=== PATIENT | female | born 2000 | race Hispanic/Latino ===

== ENCOUNTER 2018-02-10 16:46 | Emergency (ER) | payer OTHER ==
[2018-02-10 17:33] LABS: Absolute Lymphocytes (CBC) 2.3 K/uL (0.7-4.9); Absolute Monocytes 0.7 K/uL (0.1-1.3); Absolute Neutrophil 6.4 K/uL (1.8-8.0); Basophils % 0.6 % (0-1.3); Hematocrit 39.4 % (36.0-45.0); Lymphocytes % 24.1 % (15.3-44.8); MCH 28.4 pg (27.0-35.0); MCV 84.7 fL (80-100); Monocytes % 7.4 % (3.3-12.3); RBC Red Blood Cell Count 4.65 M/uL (3.86-4.86)
[2018-02-10 17:41] LABS: Protime INR 1.05
[2018-02-10 17:46] LABS: Bicarbonate 24 mEq/L (21-31); Glucose Level 103 mg/dL (65-120); Potassium 3.6 mEq/L (3.6-5.0); Sodium Level 139 mEq/L (135-145)
[2018-02-10 17:52] LABS: ALT/SGPT 16 IU/L (10-60); AST/SGOT 29 IU/L (10-42); Alkaline Phosphatase 66 IU/L (42-121); BUN Blood Urea Nitrogen 14 mg/dL (6-20); Bilirubin Direct 0.1 mg/dL (0-0.2); Bilirubin Total 0.4 mg/dL (0.3-1.2); Creatine Phosphokinase 43 IU/L (22-269); Magnesium 2.1 mg/dL (1.8-2.5); Protein, Total 6.7 g/dL (6.0-8.3)
[2018-02-10 17:56] LABS: CKMB Creatine Kinase MB 0.3 ng/ml (0.3-4.0)
--- NOTE | 2018-02-10 18:00 | EDPHYS ---
Physician Documentation [facility] Name: Chloe Mckeon Age: 17 yrs Sex: Female : 2000 Arrival Date: 02/10/2018 Time: 16:47 Bed 24 Private MD: ED Physician Amarjit Rogers HPI: 02/10 17:37 This 17 yrs old Female presents to ER via Ambulatory with complaints of Chest kav Pain. 17:45 Onset: The symptoms/episode began/occurred acutely. Associated signs and symptoms: kav Pertinent positives: chest pain, Pertinent negatives: congestion, cough, fever, headache, shortness of breath, sore throat, vomiting. Modifying factors: The patient symptoms are alleviated by nothing, the patient symptoms are aggravated by nothing, Occurred at rest. 17:46 The patient or guardian reports chest pain that is located primarily in the left kav breast. The pain does not radiate. Associated signs and symptoms: The patient has no apparent associated signs or symptoms. The chest pain is described as a pressure. Duration: The patient or guardian reports multiple episodes, that have now resolved, approximately 1 episodes since symptom onset, the episodes last approximately 2 second(s). Modifying factors: The symptoms are alleviated by rest, the symptoms are aggravated by nothing. Severity of pain: At its worst the pain was mild just prior to arrival, in the emergency department the pain has improved mildly. The patient has experienced a previous episode, approximately 5 weeks ago, and the symptoms today are exactly the same. patient reports chest pressure left breast area that is intermittent and is non-radiating. 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 - Social history:: Smoking status: Patient/guardian denies using tobacco. - Family history:: not pertinent. - Hospitalizations: : No recent hospitalization is reported. - History obtained from: mother. ROS: 17:48 Constitutional: Negative for fever, chills, and weight loss, Eyes: Negative for injury, kav pain, redness, and discharge, ENT: Negative for injury, pain, and discharge, Neck: Negative for injury, pain, and swelling, Respiratory: Negative for shortness of breath, cough, wheezing, and pleuritic chest pain, Abdomen/GI: Negative for abdominal pain, nausea, vomiting, diarrhea, and constipation, Back: Negative for injury and pain, : Negative for injury, bleeding, discharge, and swelling, MS/Extremity: Negative for injury and deformity, Skin: Negative for injury, rash, and discoloration, Neuro: Negative for headache, weakness, numbness, tingling, and seizure, Psych: Negative for depression, anxiety, suicide ideation, homicidal ideation, and hallucinations, Allergy/Immunology: Negative for hives, rash, and allergies, Endocrine: Negative for neck swelling, polydipsia, polyuria, polyphagia, and marked weight changes, Hematologic/Lymphatic: Negative for swollen nodes, abnormal bleeding, and unusual bruising. 17:48 Cardiovascular: Positive for chest pain, of the chest and left breast. Exam: 17:48 Constitutional: This is a well developed, well nourished patient who is awake, alert, kav and in no acute distress. Head/Face: Normocephalic, atraumatic. Eyes: Pupils equal round and reactive to light, extra-ocular motions intact. Lids and lashes normal. Conjunctiva and sclera are non-icteric and not injected. Cornea within normal limits. Periorbital areas with no swelling, redness, or edema. ENT: Nares patent. No nasal discharge, no septal abnormalities noted. Tympanic membranes are normal and external auditory canals are clear. Oropharynx with no redness, swelling, or masses, exudates, or evidence of obstruction, uvula midline. Mucous membranes moist. Neck: Trachea midline, no thyromegaly or masses palpated, and no cervical lymphadenopathy. Supple, full range of motion without nuchal rigidity, or vertebral point tenderness. No Meningismus. Chest/axilla: Normal chest wall appearance and motion. Nontender with no deformity. No lesions are appreciated. Respiratory: Lungs have equal breath sounds bilaterally, clear to auscultation and percussion. No rales, rhonchi or wheezes noted. No increased work of breathing, no retractions or nasal flaring. Abdomen/GI: Soft, non-tender, with normal bowel sounds. No distension or tympany. No guarding or rebound. No evidence of tenderness throughout. Back: No spinal tenderness. No costovertebral tenderness. Full range of motion. Skin: Warm, dry with normal turgor. Normal color with no rashes, no lesions, and no evidence of cellulitis. MS/ Extremity: Pulses equal, no cyanosis. Neurovascular intact. Full, normal range of motion. Neuro: Awake and alert, GCS 15, oriented to person, place, time, and situation. Cranial nerves II-XII grossly intact. Motor strength 5/5 in all extremities. Sensory grossly intact. Cerebellar exam normal. Normal gait. Psych: Awake, alert, with orientation to person, place and time. Behavior, mood, and affect are within normal limits. 17:48 Cardiovascular: Rate: normal, Rhythm: regular. 17:48 ECG was reviewed by the Attending Physician. nsr Vital Signs: 16:50 BP 131 / 75; Pulse 70; Resp 20; Temp 98.4; Pulse Ox 100% on R/A; Weight 84.37 kg; hb Height 5 ft. 5 in. (165.10 cm); Pain 8/10; 17:15 BP 112 / 63; Pulse 68; Resp 17; Pulse Ox 98% on R/A; kr2 18:00 BP 104 / 62; Pulse 68; Resp 16; Pulse Ox 100% on R/A; kr2 16:50 Body Mass Index 30.95 (84.37 kg, 165.10 cm) hb MDM: 16:56 Patient medically screened. kav 17:48 ECG:. ELENA Risk Score: TOTAL SCORE = 0. Data reviewed: vital signs, nurses notes, lab [facility] test result(s), EKG. 02/10 16:57 Order name: Basic Metabolic Panel; Complete Time: 17:57 kav 02/10 17:51 Interpretation: Within normal limits. kav 02/10 16:57 Order name: BNP; Complete Time: 17:57 kav 02/10 16:57 Order name: CBC with Diff; Complete Time: 17:50 kav 02/10 17:50 Interpretation: Within normal limits. kav 02/10 16:57 Order name: Ckmb; Complete Time: 17:57 kav 02/10 17:58 Interpretation: Within normal limits. v 02/10 16:57 Order name: CPK; Complete Time: 17:57 kav 04/07 17:59 Interpretation: Within normal limits. 02/10 16:57 Order name: LFT's; Complete Time: 17:57 02/10 16:57 Order name: Magnesium; Complete Time: 17:57 02/10 17:58 Interpretation: Within normal limits. 02/10 16:57 Order name: PT-INR; Complete Time: 17:50 02/10 17:50 Interpretation: Within normal limits. 02/10 16:57 Order name: Ptt, Activated; Complete Time: 17:50 02/10 17:50 Interpretation: Within normal limits. 02/10 16:57 Order name: Troponin (emerg Dept Use Only); Complete Time: 17:54 02/10 17:54 Interpretation: Within normal limits. 02/10 16:57 Order name: EKG; Complete Time: 16:58 02/10 16:57 Order name: Cardiac monitoring; Complete Time: 17:24 02/10 16:57 Order name: EKG - Nurse/Tech; Complete Time: 17:53 02/10 16:57 Order name: IV Saline Lock; Complete Time: 17:24 02/10 16:57 Order name: Labs collected and sent; Complete Time: 17:24 02/10 16:57 Order name: O2 Per Protocol; Complete Time: 17:24 02/10 16:57 Order name: O2 Sat Monitoring; Complete Time: 17:24 kav Administered Medications: No medications were administered Disposition: 18:44 Co-signature as Attending Physician, Amarjit Rogers MD. rn Disposition: 02/10/18 17:59 Discharged to Home. Impression: Chest pain, unspecified. - Condition is Stable. - Discharge Instructions: Nonspecific Chest Pain, Chest Wall Pain, [id number]. - Prescriptions for Ibuprofen 800 mg Oral Tablet - take 1 tablet by ORAL route every 8 hours As needed take with food; 30 tablet. - Medication Reconciliation Form, Thank You Letter, Antibiotic Education, Prescription Opioid Use form. - Follow up: Zachariah Henao; When: 2 - 3 days; Reason: Recheck today's complaints, Continuance of care, Re-evaluation by your physician. - Problem is new. - Symptoms have improved. - Notes: please call and set up a follow-up appointement with cardiolgoy in 3-5 days for post-ED evaluation and treatement Signatures: Dispatcher [employer] EDMS Kameron, Stephanie, MIRROR PAINTER MIRROR PAINTER kaAmarjit Redman MD MD rn Baxter, Heather, RN RN Kelsey Gee RN RN kr2 Corrections: (The following items were deleted from the chart) 17:55 17:51 Within normal limits. kav kav 17:57 17:51 OrderId: [id number] PrecursorText: InterpretationText: kav kav 17:58 17:55 Within normal limits. kav kav 17:58 17:55 Within normal limits. kav kav 17:58 17:55 Within normal limits. kav kav 17:58 17:55 OrderId: [id number] PrecursorText: InterpretationText: kav kav 17:59 17:57 Within normal limits. kav kav 17:59 17:55 OrderId: [id number] PrecursorText: InterpretationText: kav kav 17:59 17:55 OrderId: [id number] PrecursorText: InterpretationText: kav kav 17:59 17:59 Within normal limits. kav kav 18:27 16:57 Urine Dipstick-Ancillary ordered. kajosue kr2
--- NOTE | 2018-02-10 18:00 | ER ---
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 Pain does not radiate. Denies previous hx. Transition of care: patient was not received from another setting of care. Onset of symptoms was February 10, 2018. Care prior to arrival: None. 16:49 Method Of Arrival: Ambulatory hb 16:49 Acuity: LEENA 3 hb Triage Assessment: 17:25 General: Appears in no apparent distress. comfortable, well groomed, well developed, kr2 well nourished, Behavior is calm, cooperative, appropriate for age. Pain: Complains of pain in xyphoid area and mid-sternal area Pain does not radiate. Pain currently is 5 out of 10 on a pain scale. Quality of pain is described as pressure, Pain began suddenly, Is episodic, Alleviated by rest, repositioning. Cardiovascular: Heart tones S1 S2 present Capillary refill < 3 seconds in bilateral fingers Patient's skin is warm and dry. Rhythm is sinus rhythm. 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 - Social history:: Smoking status: Patient/guardian denies using tobacco. - Family history:: not pertinent. - Hospitalizations: : No recent hospitalization is reported. - History obtained from: mother. Screenin:25 Abuse screen: Denies threats or abuse. Denies injuries from another. Nutritional kr2 screening: No deficits noted. Tuberculosis screening: No symptoms or risk factors identified. Fall Risk None identified. Assessment: 17:27 General: Appears in no apparent distress. comfortable, well groomed, well developed, kr2 well nourished, Behavior is calm, cooperative, appropriate for age. Pain: Complains of pain in xyphoid area and mid-sternal area Pain does not radiate. Pain currently is 5 out of 10 on a pain scale. Quality of pain is described as pressure, Pain began suddenly, Is episodic, Alleviated by rest, repositioning. Neuro: Level of Consciousness is awake, alert, obeys commands, Oriented to person, place, time, situation, Appropriate for age. Cardiovascular: Heart tones S1 S2 present Capillary refill < 3 seconds in bilateral fingers Patient's skin is warm and dry. Rhythm is sinus rhythm. Respiratory: Airway is patent Respiratory effort is even, unlabored, Respiratory pattern is regular, symmetrical, Breath sounds are clear bilaterally. GI: Abdomen is flat, non-distended. : No signs and/or symptoms were reported regarding the genitourinary system. EENT: Oral mucosa is moist. Derm: Skin is intact, is healthy with good turgor, Skin is pink, warm \T\ dry. Musculoskeletal: Circulation, motion, and sensation intact. 18:20 Reassessment: Patient appears in no apparent distress at this time. Patient and/or kr2 family updated on plan of care and expected duration. Pain level reassessed. Patient is alert, oriented x 3, equal unlabored respirations, skin warm/dry/pink. Patient states feeling better. Patient states symptoms have improved. Vital Signs: 16:50 BP 131 / 75; Pulse 70; Resp 20; Temp 98.4; Pulse Ox 100% on R/A; Weight 84.37 kg; hb Height 5 ft. 5 in. (165.10 cm); Pain 8/10; 17:15 BP 112 / 63; Pulse 68; Resp 17; Pulse Ox 98% on R/A; kr2 18:00 BP 104 / 62; Pulse 68; Resp 16; Pulse Ox 100% on R/A; kr2 16:50 Body Mass Index 30.95 (84.37 kg, 165.10 cm) hb ED Course: 16:47 Patient arrived in ED. as 16:50 Triage completed. hb 16:50 Arm band placed on left wrist. hb 16:56 Stephanie Melo FNP is PSYCHIATRICP. kav 16:56 Amarjit Rogers MD is Attending Physician. kav 17:05 Kelsey Fritz RN is Primary Nurse. kr2 17:20 Inserted saline lock: 20 gauge in right antecubital area, using aseptic technique. kr2 Blood collected. Patient maintains SpO2 saturation greater than 95% on room air. 17:26 Patient has correct armband on for positive identification. Placed in gown. Bed in low kr2 position. Call light in reach. Side rails up X2. Adult w/ patient. desk monitor on. Pulse ox on. NIBP on. Door closed. Warm blanket given. Head of bed elevated. 17:59 Zachariah Henao MD is Referral Physician. kav 18:29 No provider procedures requiring assistance completed. IV discontinued, intact, kr2 bleeding controlled, No redness/swelling at site. Pressure dressing applied. Administered Medications: No medications were administered Outcome: 17:59 Discharge ordered by . kav 18:29 Discharged to home ambulatory, with family. kr2 18:29 Condition: improved 18:29 Discharge instructions given to patient, Instructed on discharge instructions, follow up and referral plans. medication usage, Demonstrated understanding of instructions, follow-up care, medications, Prescriptions given X 1. 18:30 Patient left the ED. kr2 Signatures: Stephanie Melo, MENDING CARRIER MENDING CARRIER Annette Ojeda as Miryam Lubin, RN Kelsey Diggs RN RN kr2
--- NOTE | 2018-02-11 10:22 | EKG ---
Test Date: 2018-02-10 Test Time: 17:28:37 Manager [facility]: [facility] MEASUREMENT RESULTS: Intervals: Rate: 73 [place]: 148 QRSD: 84 QT: 398 QTc: 438 [place]: P: 36 [place]: 148 QRS: 53 T: 18 INTERPRETIVE STATEMENTS: Normal sinus rhythm Anterior T inversion Abnormal ECG Compared to ECG 07/29/2017 11:50:09 no significant change from previous ECG Electronically Signed On 02-11-18 10:22:00 CDT by Juan Ramon Buchanan
== END 2018-02-10 18:30 | disposition home or self-care (01) ==
LOC: ER 16:46
DX: R07.9 Chest pain, unspecified (principal)
CPT/HCPCS: 36415; 80048; 80076; 82550; 82553; 83735; 83880; 84484; 85025; 85610; 85730; 93005; 99285

== ENCOUNTER 2019-03-08 17:32 | Observation (INO) | payer OTHER ==
[2019-03-08] MEDS: FENTANYL CITR 100 MCG/2 ML ONE ×2 (10:32→22:25)
--- OUTSIDE RECORDS SUMMARY | 2019-03-08 17:34 | XMS REPORT ---
:2000 [facility] [address] [place] [id number] Care Team Providers Name Role Phone Unavailable Unavailable Unavailable Problems This patient has no known problems. Allergies, Adverse Reactions, Alerts This patient has no known allergies or adverse reactions. Medications This patient has no known medications.
[2019-03-08 18:09] LABS: Absolute Lymphocytes (CBC) 1.5 K/uL (0.7-4.9); Absolute Monocytes 1.2 K/uL (0.1-1.3); Absolute Neutrophil 7.8 K/uL (1.8-8.0); Basophils % 0.4 % (0-1.3); Eosinophils % 0.1 % (0-4.4); Hematocrit 41.4 % (36.0-45.0); Lymphocytes % 14.3 % (15.3-44.8); MPV 8.8 fL (7.6-11.3); Monocytes % 11.2 % (3.3-12.3); RBC Red Blood Cell Count 4.66 M/uL (3.86-4.86)
[2019-03-08 18:26] LABS: ALT/SGPT 22 U/L (12-78); AST/SGOT 16 U/L (15-37); Albumin 4.2 g/dL (3.4-5.0); Alkaline Phosphatase 83 U/L (45-117); BUN Blood Urea Nitrogen 9 mg/dL (7-18); Bicarbonate 26 mmol/L (21-32); Bilirubin Direct 0.1 mg/dL (0-0.2); Bilirubin Total 0.4 mg/dL (0.2-1.0); Glucose Level 99 mg/dL (74-106); Lipase 87 U/L (73-393); Potassium 3.4 mmol/L (3.5-5.1); Protein, Total 7.6 g/dL (6.4-8.2); Sodium Level 140 mmol/L (136-145)
[2019-03-08 18:29] LABS: Urine Blood TRACE (NEG); Urine Glucose NEGATIVE (NEG); Urine Protein NEGATIVE (NEG)
[2019-03-08] MEDS ORDERED: NA CHLORIDE 0.9% 1,000 ML ONE (18:35)
[2019-03-08] MEDS ORDERED: MORPHINE 2 MG/ML SYR ONE (18:35)
[2019-03-08] MEDS ORDERED: ONDANSETRON 4 MG/2 ML VIAL ONE ×3 (18:35→21:49)
--- NOTE | 2019-03-08 19:24 | RAD REPORT ---
EXAM DESCRIPTION: CTAbdomen Pelvis W Contrast - 03/08/2019 7:10 pm CLINICAL HISTORY: Abdominal pain. right lower abdominal pain, IV ONLY COMPARISON: CT ABD PELVIS W CONTRAST dated 05/16/2013 TECHNIQUE: Biphasic CT imaging of the abdomen and pelvis was performed with 100 ml non-ionic IV cont rast. All CT scans are performed using dose optimization technique as appropriate and may include automated exposure control or mA/KV adjustment according to patient size. FINDINGS: The lung bases are clear.Postsurgical changes are present about the stomach. The liver, spleen, pancreas, adrenal glands and kidneys are within normal limits. No bowel obstruction, free air, free fluid or abscess. The appendix is thickened up to 9 mm with tra ce periappendiceal fat stranding, suspicious for early acute appendicitis. No evidence of significan t lymphadenopathy. No suspicious bony findings. IMPRESSION: Findings are suspicious for early acute appendicitis.
--- NOTE | 2019-03-08 19:42 | EDPHYS ---
Physician Documentation [facility] Name: Chloe Mckeon Age: 18 yrs Sex: Female : 2000 Arrival Date: 03/08/2019 Time: 17:35 Bed 17 Private MD: ED Physician Amarjit Rogers HPI: 03/08 17:51 This 18 yrs old Female presents to ER via Ambulatory with complaints of jmm Abdominal Pain, Cough. 17:51 The patient presents with abdominal pain in the lower abdomen. Onset: The jmm symptoms/episode began/occurred today. The symptoms do not radiate. Associated signs and symptoms: Pertinent negatives: diarrhea, fever, vomiting. This is a 18 year old female that presents to the ED with complaints of lower abdominal pain beginning earlier today. Pain is localized to the right lower quadrant. Denies fever. . 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 - Social history:: Smoking status: Patient/guardian denies using tobacco. - Ebola Screening: : No symptoms or risks identified at this time. ROS: 17:51 Constitutional: Negative for fever, chills, and weight loss, Cardiovascular: Negative jmm for chest pain, palpitations, and edema. 17:51 Respiratory: Positive for cough. 17:51 Abdomen/GI: Positive for abdominal pain. 17:51 All other systems are negative. Exam: 17:51 Constitutional: This is a well developed, well nourished patient who is awake, alert, jmm and in no acute distress. Head/Face: atraumatic. Eyes: EOMI, no conjunctival erythema appreciated ENT: Moist Mucus Membranes Neck: Trachea midline, Supple Chest/axilla: Normal chest wall appearance and motion. Cardiovascular: Regular rate and rhythm. No edema appreciated Respiratory: Normal respirations, no respiratory distress appreciated 17:51 Abdomen/GI: Inspection: abdomen appears normal, Palpation: soft, moderate abdominal tenderness, in the right lower quadrant. 17:51 Back: ROM is normal. 17:51 Musculoskeletal/extremity: ROM: intact in all extremities. 17:51 Skin: Appearance: Color: normal in color. 17:51 Neuro: Orientation: is normal, Mentation: is normal, Memory: is normal. 17:51 Psych: Behavior/mood is pleasant, cooperative. Vital Signs: 17:42 BP 119 / 75; Pulse 96; Resp 16; Temp 99(TE); Pulse Ox 100% on R/A; Weight 74.84 kg; hb Height 5 ft. 6 in. (167.64 cm); Pain 6/10; 18:22 BP 114 / 71; Pulse 89; Resp 18; Pulse Ox 100% on R/A; Pain 6/10; em 19:20 BP 122 / 85; Pulse 87; Resp 20 S; Temp 98.1(O); Pulse Ox 100% on R/A; cc3 20:12 BP 118 / 96; Pulse 85; Resp 18 S; Pulse Ox 100% on R/A; cc3 17:42 Body Mass Index 26.63 (74.84 kg, 167.64 cm) hb MDM: 17:51 Patient medically screened. [facility] 19:37 Data reviewed: vital signs, nurses notes. Counseling: I had a detailed discussion with [facility] the patient and/or guardian regarding: the historical points, exam findings, and any diagnostic results supporting the discharge/admit diagnosis, radiology results, the need for outpatient follow up, to return to the emergency department if symptoms worsen or persist or if there are any questions or concerns that arise at home. ED course: I discussed the patient with Dr. Tavares whom accepted admission. . 03/08 17:52 Order name: Basic Metabolic Panel; Complete Time: 18:27 [facility] 03/08 17:52 Order name: CBC with Diff; Complete Time: 18:14 [facility] 03/08 17:52 Order name: Creatinine for Radiology; Complete Time: 18:25 [facility] 03/08 17:52 Order name: Hepatic Function; Complete Time: 18:27 [facility] 03/08 17:52 Order name: Lipase; Complete Time: 18:27 [facility] 03/08 18:04 Order name: Urine Dipstick--Ancillary (enter results); Complete Time: 18:35 03/08 18:04 Order name: Urine --Ancillary (enter results); Complete Time: 18:35 eb 03/08 20:06 Order name: Basic Metabolic Panel [facility] 03/08 20:06 Order name: Basic Metabolic Panel [facility] 03/08 20:06 Order name: CBC with Automated Diff [facility] 03/08 20:06 Order name: CBC with Automated Diff [facility] 03/08 20:06 Order name: Lipase [facility] 03/08 20:06 Order name: Lipase [facility] 03/08 20:06 Order name: Liver (Hepatic) Function [facility] 03/08 17:52 Order name: IV Saline Lock; Complete Time: 18:05 [facility] 03/08 17:52 Order name: Labs collected and sent; Complete Time: 18:05 [facility] 03/08 17:53 Order name: Urine Dipstick-Ancillary (obtain specimen); Complete Time: 18:05 [facility] 03/08 17:53 Order name: CT Abd/Pelvis - W/Contrast; Complete Time: 19:31 [facility] 03/08 20:06 Order name: NPO [facility] 03/08 20:06 Order name: Liver (Hepatic) Function EDMS Administered Medications: 18:30 Drug: Zofran 4 mg Route: IVP; Site: right antecubital; hb 19:15 Follow up: Response: No adverse reaction; Nausea is decreased cc3 18:31 Drug: NS 0.9% 1000 ml Route: IV; Rate: 1 bolus; Site: right antecubital; em 19:15 Follow up: Response: No adverse reaction; IV Status: Completed infusion; IV Intake: cc3 1000ml 18:34 Drug: morphine 2 mg Route: IVP; Site: right antecubital; hb 19:15 Follow up: Response: No adverse reaction; Pain is decreased cc3 19:50 Drug: morphine 4 mg Route: IVP; Site: right antecubital; cc3 20:15 Follow up: Response: No adverse reaction; Pain is decreased cc3 19:55 Drug: Zofran 4 mg Route: IVP; Site: right antecubital; cc3 20:15 Follow up: Response: No adverse reaction; Nausea is decreased cc3 20:00 Drug: Flagyl 500 mg Volume: 100 ml; Route: IVPB; Rate: 200 ml/hr; Infused Over: 30 cc3 mins; Site: right antecubital; 20:26 Follow up: Response: No adverse reaction; IV Status: Infusion continued upon admission; cc3 IV Intake: 80ml 20:26 Drug: Cipro 400 mg {Note: To be started in OR right after the ongoing IV Flagyl as per cc3 ARMATURE CONNECTORFARHAT Alexandre.} Volume: 200 ml; Route: IVPB; Infused Over: 60 mins; Site: right antecubital; 20:26 Follow up: To be started in OR after the ongoing IV Flagyl cc3 Disposition: 03/08/19 19:41 Hospitalization ordered by Russ Tavares for Inpatient Admission. Preliminary diagnosis is Acute appendicitis. - Bed requested for Telemetry/MedSurg (Inpatient). - Status is Inpatient Admission. cc3 - Condition is Stable. - Problem is new. - Symptoms are unchanged. UTI on Admission? No Addendum: 03/09/2019 22:45 Co-signature as Attending Physician, Amarjit Rogers MD. r n Signatures: Dispatcher [employer] EDMS Chacorta Meeks PA PA jmm Munoz, Edgar, PSYCHOPAEDIC NURSE PSYCHOPAEDIC NURSE em Amarjit Rogers MD MD rn Garcia, Cindy, RN RN cg Baxter, Heather, RN RN Akanksha Enamorado cc3 Corrections: (The following items were deleted from the chart) 03/08 20:13 19:41 Hospitalization Ordered by Russ Tavares MD for Inpatient Admission. Preliminary cg diagnosis is Acute appendicitis. Bed requested for Telemetry/MedSurg (Inpatient). Status is Inpatient Admission. Condition is Stable. Problem is new. Symptoms are unchanged. UTI on Admission? No. [facility] 20:31 20:13 03/08/2019 19:41 Hospitalization Ordered by Russ Tavares MD for Inpatient cc3 Admission. Preliminary diagnosis is Acute appendicitis. Bed requested for Telemetry/MedSurg (Inpatient). Status is Inpatient Admission. Condition is Stable. Problem is new. Symptoms are unchanged. UTI on Admission? No. cg
--- NOTE | 2019-03-08 19:42 | ER ---
Nurse's Notes [facility] Name: Chloe Mckeon Age: 18 yrs Sex: Female : 2000 Arrival Date: 03/08/2019 Time: 17:35 Bed 17 Private MD: Diagnosis: Acute appendicitis Presentation: 03/08 17:41 Presenting complaint: Right sided abdominal pain and nausea since this morning, hb nonproductive cough x 5 days. Denies V/D/fever. Transition of care: patient was not received from another setting of care. Onset of symptoms was March 08, 2019. Risk Assessment: Do you want to hurt yourself or someone else? Patient reports no desire to harm self or others. Care prior to arrival: None. 17:41 Method Of Arrival: Ambulatory hb 17:41 Acuity: LEENA 3 hb 19:15 Initial Sepsis Screen: Does the patient meet any 2 criteria? No. Patient's initial cc3 sepsis screen is negative. Does the patient have a suspected source of infection? No. Patient's initial sepsis screen is negative. 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 - Social history:: Smoking status: Patient/guardian denies using tobacco. - Ebola Screening: : No symptoms or risks identified at this time. Screenin:00 Abuse screen: Denies threats or abuse. Nutritional screening: No deficits noted. em Tuberculosis screening: No symptoms or risk factors identified. Fall Risk None identified. Assessment: 18:00 General: Appears in no apparent distress. comfortable, Behavior is calm, cooperative, em Denies fever. Pain: Complains of pain in right lower quadrant Pain currently is 6 out of 10 on a pain scale. Pain began this morning. Neuro: Level of Consciousness is awake, alert, obeys commands, Oriented to person, place, time, situation. Cardiovascular: Capillary refill < 3 seconds Patient's skin is warm and dry. Respiratory: Airway is patent Respiratory effort is even, unlabored, Respiratory pattern is regular, symmetrical, Breath sounds are clear bilaterally. GI: Abdomen is flat, Bowel sounds present X 4 quads. Abd is soft X 4 quads Abdomen is tender to palpation in right lower quadrant Reports nausea, Patient currently denies diarrhea, vomiting. : Urine is clear. EENT: Reports nasal congestion. Derm: Skin is intact, is healthy with good turgor, Skin is pink, warm \T\ dry. Musculoskeletal: Capillary refill < 3 seconds, Range of motion: intact in all extremities. 19:20 Reassessment: Patient appears in no apparent distress at this time. Patient and/or cc3 family updated on plan of care and expected duration. Pain level reassessed. Patient is alert, oriented x 3, equal unlabored respirations, skin warm/dry/pink. Received this female patient from morning shift [facility] as a case of abdominal pain. Patient came back from CT scan department, awaiting result. 20:12 Reassessment: Patient appears in no apparent distress at this time. Patient and/or cc3 family updated on plan of care and expected duration. Pain level reassessed. Patient is alert, oriented x 3, equal unlabored respirations, skin warm/dry/pink. 20:27 Reassessment: Patient appears in no apparent distress at this time. Patient and/or cc3 family updated on plan of care and expected duration. Pain level reassessed. Patient is alert/active/playful, equal unlabored respirations, skin warm/dry/pink. DOUBLE NEEDLE STITCHERFARHAT Alexandre came and handed over the patient to her for continuity of care and management. Was about to start the IV Ciprofloxacin before they leave for OR but FARHAT Alexandre said she'll just start it in OR after the ongoing IV Flagyl. Patient left ER vitally stable by wheelchair escorted by FARHAT Alexandre and the patient's parents. Vital Signs: 17:42 BP 119 / 75; Pulse 96; Resp 16; Temp 99(TE); Pulse Ox 100% on R/A; Weight 74.84 kg; hb Height 5 ft. 6 in. (167.64 cm); Pain 6/10; 18:22 BP 114 / 71; Pulse 89; Resp 18; Pulse Ox 100% on R/A; Pain 6/10; em 19:20 BP 122 / 85; Pulse 87; Resp 20 S; Temp 98.1(O); Pulse Ox 100% on R/A; cc3 20:12 BP 118 / 96; Pulse 85; Resp 18 S; Pulse Ox 100% on R/A; cc3 17:42 Body Mass Index 26.63 (74.84 kg, 167.64 cm) hb ED Course: 17:35 Patient arrived in ED. as 17:42 Triage completed. hb 17:43 Arm band placed on right wrist. hb 17:45 Chacorta Meeks PA is PHCP. jmm 17:45 Amarjit Rogers MD is Attending Physician. jmm 17:53 Constantin Tristan LVN is Primary Nurse. em 17:55 Radiology exam delayed due to lab results not completed at this time. test vm2 not completed at this time. 18:00 Patient has correct armband on for positive identification. Placed in gown. Bed in low em position. Call light in reach. Side rails up X2. Adult w/ patient. Pulse ox on. NIBP on. 18:10 Initial lab(s) drawn, by me, sent to lab. Inserted saline lock: 20 gauge in right em antecubital area, using aseptic technique. Blood collected. 19:11 CT Abd/Pelvis - W/Contrast In Process Unspecified. EDMS 19:38 Russ Tavares MD is Hospitalizing Provider. m 20:26 No provider procedures requiring assistance completed. Patient admitted, IV remains in cc3 place. Administered Medications: 18:30 Drug: Zofran 4 mg Route: IVP; Site: right antecubital; hb 19:15 Follow up: Response: No adverse reaction; Nausea is decreased cc3 18:31 Drug: NS 0.9% 1000 ml Route: IV; Rate: 1 bolus; Site: right antecubital; em 19:15 Follow up: Response: No adverse reaction; IV Status: Completed infusion; IV Intake: cc3 1000ml 18:34 Drug: morphine 2 mg Route: IVP; Site: right antecubital; hb 19:15 Follow up: Response: No adverse reaction; Pain is decreased cc3 19:50 Drug: morphine 4 mg Route: IVP; Site: right antecubital; cc3 20:15 Follow up: Response: No adverse reaction; Pain is decreased cc3 19:55 Drug: Zofran 4 mg Route: IVP; Site: right antecubital; cc3 20:15 Follow up: Response: No adverse reaction; Nausea is decreased cc3 20:00 Drug: Flagyl 500 mg Volume: 100 ml; Route: IVPB; Rate: 200 ml/hr; Infused Over: 30 cc3 mins; Site: right antecubital; 20:26 Follow up: Response: No adverse reaction; IV Status: Infusion continued upon admission; cc3 IV Intake: 80ml 20:26 Drug: Cipro 400 mg {Note: To be started in OR right after the ongoing IV Flagyl as per cc3 DOUBLE NEEDLE STITCHERFARHAT Alexandre.} Volume: 200 ml; Route: IVPB; Infused Over: 60 mins; Site: right antecubital; 20:26 Follow up: To be started in OR after the ongoing IV Flagyl cc3 Intake: 19:15 IV: 1000ml; Total: 1000ml. cc3 20:26 IV: 80ml; Total: 1080ml. cc3 Outcome: 19:41 Decision to Hospitalize by Provider. [facility] 20:26 Admitted to OR accompanied by nurse, family with patient, via wheelchair, room OR then cc3 218, with chart, Report called to handed over to DOUBLE NEEDLE STITCHERFARHAT Alexandre 20:26 Condition: stable 20:26 Instructed on the need for admit, Demonstrated understanding of instructions. 20:31 Patient left the ED. cc3 Signatures: Dispatcher [employer] Chacorta Espinoza PA PA Constantin Reynolds, TESTER SOUND TESTER SOUND Annette Huffman Heather, FARHAT RN Aster Alberto [facility] Akanksha Enamorado cc3 Corrections: (The following items were deleted from the chart) 19:33 19:20 BP 122 / 85; Pulse 87bpm; Resp 20bpm; Spontaneous; Pulse Ox 100% RA; cc3 cc3
[2019-03-08] MEDS ORDERED: MORPHINE 4 MG/ML SYR ONE (20:02)
[2019-03-08] MEDS ORDERED: METRONIDAZOLE 500mg IVPB 500 MG/100 ML BAG IV ONE (20:03)
[2019-03-08] MEDS ORDERED: CIPROFLOXACIN 400mg IV 400 MG/200 ML BAG IV ONE (20:03)
[2019-03-08] MEDS ORDERED: ACETAMINOPHEN 500 MG TAB PO PRN (20:04)
--- OUTSIDE RECORDS SUMMARY | 2019-03-08 20:38 | XMS REPORT ---
:2000 [facility] [address] [place] [address] [place] [id number] Care Team Providers Name Role Phone Unavailable Unavailable Unavailable Problems This patient has no known problems. Allergies, Adverse Reactions, Alerts This patient has no known allergies or adverse reactions. Medications This patient has no known medications.
[2019-03-08] MEDS ORDERED: Ringers Lactate 1,000 ML IV ONE (20:48)
[2019-03-08] MEDS: ONDANSETRON HCL 40 MG/20 ML VIAL IV SCH (21:00)
[2019-03-08] MEDS: CIPROFLOXACIN 400mg IV 400 MG/200 ML BAG IV SCH (21:00)
[2019-03-08] MEDS ORDERED: PROPOFOL 200 MG/20 ML VIAL IV ONE (21:02)
[2019-03-08] MEDS ORDERED: ROCURONIUM 50 MG/5 ML VIAL IV ONE (21:03)
[2019-03-08] MEDS ORDERED: FENTANYL CITR 100 MCG/2 ML ONE ×2 (21:03→22:49)
[2019-03-08] MEDS ORDERED: LIDOCAINE 2% MPF 5 ML VIAL ONE (21:03)
[2019-03-08] MEDS ORDERED: BSS OPTHALMIC SOL 15 ML BOT OPTH ONE (21:06)
[2019-03-08] MEDS: BUPIVACAINE 0.5% PF 10 ML VIAL ONE ×2 (21:11→21:54)
[2019-03-08] MEDS ORDERED: KETOROLAC 30 MG/ML INJ ONE (21:49)
[2019-03-08] MEDS ORDERED: DEXAMETHASONE 10 MG/ML VIAL ONE (21:49)
[2019-03-08] MEDS ORDERED: GLYCOPYRROLATE 0.2 MG/ML SYR ONE (22:12)
[2019-03-08] MEDS ORDERED: NEOSTIGMINE 1 MG/ML -10 ML VIAL ONE ×2 (22:13→22:15)
[2019-03-09] MEDS: MORPHINE 4 MG/ML SYR IV PRN ×2 (01:21→05:51)
[2019-03-09] MEDS: ONDANSETRON HCL 40 MG/20 ML VIAL IV SCH ×2 (01:21→05:49)
[2019-03-09] MEDS: ONDANSETRON 4 MG/2 ML VIAL ONE ×2 (01:21→01:31)
[2019-03-09] MEDS: METRONIDAZOLE 500mg IVPB 500 MG/100 ML BAG IV SCH ×2 (01:22→08:08)
[2019-03-09] MEDS: D5 0.45 NS 1,000 ML IV SCH ×3 (01:22→12:21)
[2019-03-09 05:22] LABS: Absolute Lymphocytes (CBC) 0.7 K/uL (0.7-4.9); Absolute Monocytes 0.3 K/uL (0.1-1.3); Absolute Neutrophil 5.3 K/uL (1.8-8.0); Basophils % 0.3 % (0-1.3); Hematocrit 38.3 % (36.0-45.0); Lymphocytes % 10.5 % (15.3-44.8); MPV 9.3 fL (7.6-11.3); Monocytes % 4.2 % (3.3-12.3); RBC Red Blood Cell Count 4.25 M/uL (3.86-4.86)
--- NOTE | 2019-03-09 05:35 | PREOPHP ---
Date of Admission: 03/08/2019 Diagnoses: Acute appendicitis. History Of Present Illness: This is the case of a 18-year-old patient who comes to us complaining of right lower quadrant tenderness associated with nausea, vomiting. This happened for a day of durati on. She denies any dysuria, hematuria, hematochezia, or melena. Denies any recent travel out of the country. Denies any family member sick at home. Past Medical History: Includes history of morbid obesity, the patient had a gastric sleeve in 2017, chronic headache. Allergies: NONE. Medication: Amitriptyline and Vyvanse. Past Surgical History: Surgeries also include tonsillectomy, gastric sleeve. Social History: She does not smoke. She does not drink alcohol. Family History: Noncontributory. Review of Systems: Ten points otherwise unremarkable. Physical Examination: General: The patient is awake and alert. HEENT: Pupils are equal and reactive, anicteric. Neck: Supple. Chest: Clear. Heart: S1, S2. Abdomen: Right lower quadrant tenderness with Rovsing sign positive. Breasts, Pelvic, Rectal: Deferred. Extremities: Good capillary refill. Cranial nerves 2 through 12, grossly within normal limits. Laboratory Data: Blood work shows WBC count of 10.5 with platelets of 220, neutrophils 74.0, potassi um 3.4. UA: Nitrite negative. Laboratory Data: CAT scan of abdomen and pelvis shows acute appendicitis by Dr. Leija. Assessment: She is a 18-year-old patient with acute appendicitis. Laparoscopic, possible open appen dectomy was fully explained to the patient with benefits, alternatives, and risks, including, but not limited to infection, bleeding, damage to adjacent structures, anesthesia complication, negative prakash endix, myocardial infarction, even . She also understands this may not relieve the symptoms and she might need more than one surgical intervention. The OR was called stat. VIRIDIANA/GODFREY Voice ID: [id number]
[2019-03-09 05:36] LABS: ALT/SGPT 20 U/L (12-78); AST/SGOT 11 U/L (15-37); Albumin 3.5 g/dL (3.4-5.0); Alkaline Phosphatase 74 U/L (45-117); BUN Blood Urea Nitrogen 7 mg/dL (7-18); Bicarbonate 26 mmol/L (21-32); Bilirubin Direct 0.1 mg/dL (0-0.2); Bilirubin Total 0.3 mg/dL (0.2-1.0); Glucose Level 159 mg/dL (74-106); Lipase 55 U/L (73-393); Potassium 4.2 mmol/L (3.5-5.1); Protein, Total 6.7 g/dL (6.4-8.2); Sodium Level 141 mmol/L (136-145)
[2019-03-09] MEDS ORDERED: ONDANSETRON 4 MG/2 ML VIAL ONE (05:54)
--- NOTE | 2019-03-09 07:15 | OP ---
Date of Procedure: 03/08/2019 Surgeon: Russ Tavares MD Preoperative Diagnosis: Acute appendicitis. Postoperative Diagnosis: Acute appendicitis. Procedure: Laparoscopic appendectomy. Anesthesia: General plus local. Indications: This is a case of a 18-year-old patient comes to us with above diagnosis. Fully explai capri the benefits, alternatives, and risks of laparoscopic, possible open appendectomy, which include but are not limited to infection, bleeding, damage to adjacent structures, anesthesia complication, M I, and even . She also understands this may not relieve any symptoms. She might need more than one surgical intervention. She understood, signed a consent. Description Of Procedure: The patient was brought to the operating room, placed in supine position. Anesthesia was done without complication. Abdominal area was prepped and draped in a sterile fashio n. Marcaine 0.5% was injected for local anesthetic, followed by sharp incision of the skin in the in fraumbilical region. Incision was carried down to fascia, which was opened under direct vision. Per itoneum was encountered, opened under direct vision. Vicryl #1 placed inside the fascia. Rj tro car was carefully introduced. No bleeding was obtained. I placed 2 more trocars, 5 mm each one of t hem, in the suprapubic and left lower quadrant under direct visualization. This allowed me to visual ize the area of the right lower quadrant. We noticed an inflamed appendix. The base of the appendix seems to be spared from the disease so we created a window in the base of the appendix and transecte d that with an Endo TEDDY 45 mm 3.5, and the mesoappendix with an Endo TEDDY 45 mm 2.5. Further hemostas is was obtained with the help of a 5 mm clips. Appendix removed from abdominal cavity using an EndoC atch through the umbilical incision. The area was inspected once again. No bile leak. No bleeding. This is after irrigation and suction. At that moment, I proceeded to remove the trocars under dire ct vision. Deflated the pneumoperitoneum. Closed the fascia with #1 Vicryl. Irrigated subcutaneous tissue, closed that with 3-0 chromic and skin in a subcuticular fashion with 3-0 chromic and Steri-S trips on top. Sponge count and instrument counts were correct. The patient tolerated the procedure well. The patient was sent to recovery in stable condition. HM/MODL Voice ID: [id number] Report ID: [id number]
[2019-03-09] MEDS: HYDROCODONE/APAP 5/325 MG TAB PO PRN ×2 (08:08→12:44)
[2019-03-09] MEDS: CIPROFLOXACIN 400mg IV 400 MG/200 ML BAG IV SCH (08:09)
[2019-03-09] MEDS: ONDANSETRON 4 MG/2 ML VIAL IV SCH ×2 (09:00→12:19)
--- NOTE | 2019-03-09 10:55 | P.DS ---
Admission Date: 03/08/19 Discharge Date: 03/09/19 Disposition: ROUTINE DISCHARGE Discharge Condition: GOOD Vital Signs/Physical Exam: Temp Pulse Resp BP Pulse Ox 97 F 59 18 93/53 L 98 03/09/19 08:00 03/09/19 08:00 03/09/19 08:00 03/09/19 08:00 03/09/19 08:00 General: Alert, In no apparent distress, Oriented x3, Cooperative HEENT: PERRLA, EOMI Neck: Supple Respiratory: Normal air movement Cardiovascular: No edema, Normal pulses Gastrointestinal: Soft and benign Musculoskeletal: No erythema, No tenderness, No warmth Integumentary: No rashes, No breakdown Neurological: Normal speech Laboratory Data at Discharge: WBC 6.2 K/uL (4.3-10.9) D 03/09/19 04:43 Hgb 12.7 g/dL (12.0-15.0) 03/09/19 04:43 Hct 38.3 % (36.0-45.0) 03/09/19 04:43 Plt Count 201 K/uL (152-406) 03/09/19 04:43 Sodium 141 mmol/L (136-145) 03/09/19 04:43 Potassium 4.2 mmol/L (3.5-5.1) 03/09/19 04:43 BUN 7 mg/dL (7-18) 03/09/19 04:43 Creatinine 0.70 mg/dL (0.55-1.3) 03/09/19 04:43 Glucose 159 mg/dL (74-106) H 03/09/19 04:43 Total Bilirubin 0.3 mg/dL (0.2-1.0) 03/09/19 04:43 AST 11 U/L (15-37) L 03/09/19 04:43 ALT 20 U/L (12-78) 03/09/19 04:43 Alkaline Phosphatase 74 U/L (45-117) 03/09/19 04:43 Lipase 55 U/L (73-393) L 03/09/19 04:43 Home Medications: Acetam/Caff/Butal [Fioricet*] 1 tab PO PRN PRN 03/08/19 Amitriptyline [Elavil*] 25 mg PO BEDTIME 03/08/19 Dextroamphetamine/Amphetamine [Adderall 20 mg Tablet] 20 mg PO DAILY 03/08/19 Lisdexamfetamine Dimesylate [Vyvanse] 50 mg PO DAILY 03/08/19 Amoxicillin/Potassium Clav [Augmentin 875-125 Tablet] 1 each PO BID #12 tablet 03/09/19 Codeine/APAP [Tylenol W/Codeine #3 tab] 1 tab PO Q4HP PRN #30 tab 03/09/19 New Medications: Amoxicillin/Potassium Clav [Augmentin 875-125 Tablet] 1 each PO BID #12 tablet Codeine/APAP [Tylenol W/Codeine #3 tab] 1 tab PO Q4HP PRN #30 tab PRN Reason: Pain Patient Discharge Instructions: KEep area dry for 24h then may shower. Keep sterile strips intact. Diet: AHA Activity: No lifting more than 10 lbs Followup: Russ Tavares MD [ACTIVE - CAN ADMIT] - 1 Week
== END 2019-03-09 13:55 | disposition home or self-care (01) ==
LOC: ER 17:32 → OR 20:36 → INTOOBSV 21:00 → ERHOLD 21:00 → 2ND 21:01
PROVIDERS: ADMIT Surgery; ATTEND Surgery
PROC: 0DTJ4ZZ Resection of Appendix, Percutaneous Endoscopic Approach (ICD-10-PCS; principal; 2019-03-08 20:00)
DX: K35.80 Unspecified acute appendicitis (principal)
CPT/HCPCS: 36415; 74177; 80048; 80076; 81003; 81025; 83690; 85025; 88304; 96361; 96365; 96375; 99285; J0744; J1100; J2270; J2405; J2704; J2710; J3010; J7030; Q9967

== ENCOUNTER 2021-01-10 11:10 | Emergency (ER) | payer OTHER ==
--- OUTSIDE RECORDS SUMMARY | 2021-01-10 11:14 | XMS REPORT | Continuity of Care Document ---
:2000 Author Organization [facility] t Address [address] [place] [address] Care Team Providers Name Role Phone LICO Primary Care Physician Unavailable SYSTEM, NOT IN Attending Clinician Unavailable Curtis ESQUIVEL Attending Clinician CURTIS Attending Clinician Unavailable Lico RUIZ Attending Clinician LICO Attending Clinician Unavailable Kuldip TRINIDAD Attending Clinician Unavailable Tyler RUIZ G Attending Clinician Shelley RUIZ M Attending Clinician Payers Payer Name Policy Type Policy Number Effective Date Expiration Date S jadiel AETNA MANAGED [id number] MD Nance CAREAETNA 00:00:00 [id number] Problems Condition Condition Condition Status Onset Resolution Last Treating Co mments Source Name Details Category Date Date Treatment Clinician Date 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 00:00: n ity ity 00 disorder disorder Malignant Malignant Disease Active neoplasm neoplasm 2- Tyrese o of left of left 00:00: n fallopian fallopian 00 tube tube Malignant Malignant Disease Resolve 2020-12-07 2020-12-07 neoplasm neoplasm d - 00:00:00 15:42:24 An derso of left of left 00:00: n ovary ovary 00 Allergies, Adverse Reactions, Alerts Allergy Allergy Status Severity Reaction(s) Onset Inactive Treating Comm ents Source Name Type Date Date Clinician No Known DA Active U [facility] Allergie 11-11 Junito s 00:00: d 00 [facility] Social History Social Habit Start Date Stop Date Quantity Comments Source Sex Assigned At MD Xiong on Tobacco use and 2020-12-07 2020-12-07 Never used MD Xiong on exposure 00:00:00 00:00:00 Alcohol intake 2020-12-07 2020-12-07 Current drinker MD Isabel su 00:00:00 00:00:00 of alcohol (finding) Smoking Status Start Date Stop Date Source Never smoker MD Nance Medications Ordered Filled Start Stop Current Ordering Indication Dosage Frequency Signature Comments Components Source Medication Medication Date Date Medication? Clinician (SIG) Name Name Eduar 60 Yes daily. mg capsule 1-18 Anderso 00:00: n 00 dextroamphe Yes daily. tamine-amph 1-12 Anderso etamine 30 00:00: n mg tab 00 Vital Signs Vital Name Observation Time Observation Value Comments Source Systolic blood pressure 2020-12-07 14:07:42 112 mm[Hg] MD Nance Diastolic blood pressure 2020-12-07 14:07:42 73 mm[Hg] MD Nance Heart rate 2020-12-07 14:07:42 86 /min MD Adolfo mehta Body temperature 2020-12-07 14:07:42 37.44 Chioma MD Agnieszka perez Respiratory rate 2020-12-07 14:07:42 18 /min MD Agnieszka perez Body height 2020-12-07 14:07:42 168 cm MD Adolfo mehta Body weight 2020-12-07 14:07:42 85.3 kg MD Adolfo mehta BMI 2020-12-07 14:07:42 30.22 kg/m2 MD Adolfo mehta Oxygen saturation in 2020-12-07 14:07:42 99 /min MD Nance Arterial blood by Pulse oximetry Procedures Procedure Date / Time Performed Performing Clinician Sourc e HEPATITIS C VIRUS ANTIBODY 2020-12-07 16:03:00 Margaret Giles CANCER ANTIGEN 125 2020-12-07 16:03:00 Margaret Giles MD on HC HIV 1/2 AG AND AB 4TH GEN 2020-12-07 16:03:00 Margaret Giles MD HEPATITIS C VIRUS AB SCREEN 2020-12-07 16:03:00 Margaret Giles MD W/REFLEX HCV PCR TMP HIV 1/2 AG&AB PATH INTERP 2020-12-07 16:03:00 Margaret Giles MD HC 2019-NCOV COVID-19 2020-12-04 16:09:00 Anai Barfield MD And erson PATHOLOGY OUTSIDE 2020-11-12 00:00:00 Dario Rosa MD Adolfo son INTERPRETATION OSI MRI PELVIS 2020-06-18 14:08:49 Anai Barfield MD OSI MRI ABDOMEN 2020-06-18 14:08:35 Anai Barfield MD Encounters Start End Encounter Admission Attending Care Care Encounter Source Date/Time Date/Time Type Type Clinicians Facility Department ID 2020-11-20 Outpatient SYSTEMOLLIE MDA [id number] 10:50:46 PROVIDER Tyrese jaimes 2020-12-10 2020-12-10 Outpatient MARGARET JOHN MDA MDA [id number] 15:46:55 15:48:13 Tyrese jaimes 2020-12-07 2020-12-07 Outpatient MARGARET JOHN MDA MDA [id number] 09:41:00 10:00:14 Tyrese jaimes 2020-12-07 2020-12-07 Outpatient GHADA BARFIELD OLLIE MDA [id number] 08:29:38 08:29:38 ANAI jaimes 2020-12-07 2020-12-07 Outpatient GHADA BARFIELDOLLIE MDA [id number] 08:29:35 08:29:35 ANAI jaimes 2020-12-07 2020-12-07 Outpatient GHADA MEZAFEROLLIE MDA [id number] 08:02:12 08:02:12 ANAI jaimes 2020-12-07 2020-12-07 Outpatient OLLIE MDA [id number] 07:59:07 07:59:34 Tyrese jaimes 2020-12-04 2020-12-04 Outpatient GHADA MEZAFEROLLIE MDA [id number] 09:48:01 10:09:59 ANAI jaimes Results Test Description Test Time Test Comments Results Result Sourc e Comments OSI MRI Pelvis 2020-12-07 Study acquired at [facility] 15:09:03 another institution. For comparison only. No [facility] originated interpretation requested or available. OSI MRI ABDOMEN 2020-12-07 Study acquired at [facility] 15:08:45 another institution. For comparison only. No [facility] originated interpretation requested or available. COVID-19 (NYLA-CoV-2) PCR Asymptomatic 2020-12-05 07:24:41 Test Item Value Reference Range Interpretation Comme nts COVID19 SARS Indication (test New Patient code = 31478) COVID19 SARS Result (test code Not Detected Not Detected = 92260-8) COVID19 SARS Interpretation SARS-CoV-2 NOT Detected. Reference (test code = 94074) Range: Not Detected Methodology: The Horn RealTime SARS-CoV-2 assay is a qualitative real-time reverse counterintelligence specialist polymerase chain reaction (repulping supervisor-PCR) test to detect RNA from SARS-CoV-2 in nasal, nasopharyngeal and oropharyngeal swabs from patients with signs and symptoms of infection who are suspected of COVID-19 by their health care provider. The Horn RealTime SARS-CoV-2 performed on the Kentaura000 System is a dual target assay with primers and probes for the RdRp and N genes. Results must be interpreted within the context of all relevant clinical and laboratory findings, and epidemiological risk factors. Positive results are indicative of the presence of SARS-CoV-2 RNA; clinical correlation with patient history and other diagnostic information is necessary to determine patient infection status. Positive results do not rule out bacterial infection or co-infection with other viruses. Negative results do not preclude SARS-CoV-2 infection and should not be used as the sole basis for patient management decisions. The Horn RealTime SARS-CoV-2 assay is for in vitro diagnostic use under FDA Emergency Use Authorization only. Testing is limited to laboratories certified under the Clinical Laboratory Improvement Amendments of 1988 (CLIA), 42U.S.C. 263a, to perform high complexity tests. The Test was performed by the CLIA-certified, high-complexity Molecular Diagnostics Laboratory (MDL) at [facility] under the Food and Drug Administration (FDA) s Emergency Use Authorization. Factsheet for patients: https://www.[facility].org/AbbottFactS heetPatientsFactsheet for healthcare providers: https://www.[facility].org/AbbottFactS heetHCP Test performed by:[facility] Molecular Diagnostic [id number] [place] [address] MD NancePathology Outside [id number] 15:24:00 Test Item Value Reference Range Interpretation Comments Materials Received (test a7heuENtGMWxhXQcXrKw code = 9973) IQAtKMKzl4nhLJEkhBEc ZzEwMzNcZnRuYmpcdWMx YFPuSnMik5iay257pRKu u8slFLZoAcV9hACnACFj uGZtR015SJOvMAlgt2zb k4ObDPGbcYLib9N9BUAP bvcyrFf1fJllH27bp2M3 IaszS8nqPQToRHRdH7Xu AC2vGIArUpq2UAE5QCV5 YAYeTQAhY7PlJH7qNJDo nWKqAQh2r1ejnEzeXCEg XMO8z8dmWNkvomYfRF7n pg2wgCc1b2gejmEsOLNa QRCehQMUJEUyS3YmpAvx Yx5nhHo6uLybXrdvNAQ3 Cuc6IG0lsf43vqv4bDgi AQWwqvrwFbT1TVmsWTBb hutxJMm6PSgvHYGqaIbi MFxtYXJncjcyMFxtYXJn hWI7MYZxlKYjX0BrOGIp BNzhOYEsskl7TlNgEh6i lZSceNoeGGyrq5mwy5wj mHVzAvn2SOClNnFlMnfr DXihx4Uir6vpSGLzyd7v JWM5jWNchAtbz0L7bVEz VPOygXQoafRxJQCwmh09 fMTzfPXlhHRwzq6mutVs tXUcoDWiISD7qATacbTn YXXbgZBcLFKsCD6tbIFn BURllB0rrbrjHVWjAmEg ivlpWETqoNshxlCfVs4z aNzdKMF9YLjnL0kzsC1g GuX7MRbeZ8gmfY5xTRl1 WRywsCX2KZDoeE8qAZ8c eozdm7ebXdXwYO7uhajz h6rgHsUuLB7uyve6p6vy WHB5MOdmGESdOvH5zhR9 NDBcaGVhZGVyeTcyMFxm w567WNA2QeIaYHNtw3Jx H6IroCqnB82zsLvhG26x DTYueVinoT7klSennN2j YyBpCyUxBRk3au35CBz6 rgcmhCmkHCn2zaZrQYBt ZEV4PDGyrUEwPVZsB7p3 xqIqKIKoKVF1WCFhsFAf VXPaN6k5ceIkDOQ6JSu3 cnBhZGRmdDNcdHJwYWRk YjBcdHJwYWRkZmIzXHRy qBIzcOWxxEEkiL5yyQhp KZTytEDzvG4gTLV4WGWg cmgzMjBcdHJoZHJcbHRy tk45DVFepnDepMFlpMgr qFAqBVG4XRMiJIMoGNSw ONU4HWKjLbKnxwWiMXyq bGJyZHJiXGJyZHJzXGJy VZW5EKUxKjQhrpZkGGiu bGJyZHJsXGJyZHJzXGJy TWH5HZEzDlQbcuBdBOdy bGJyZHJyXGJyZHJzXGJy TAE3OSAaMjDpmdFvEUct bHBhZHQxMFxjbHBhZGZ0 S1nnxNIxKIVrJHwpvONi NVQsN7yabVRtQJknRVHs cGFkZmwzXGNscGFkYjBc D4vpUXXyUyWuZ8PinCk3 MDAwXGNsdmVydGFsdFxj hWVsKJP0KTQcIUZmKBBt IGT3CQAyFoJuwtVdZPwx bGJyZHJiXGJyZHJzXGJy GCK4URCqTmDeodUyHDnb bGJyZHJsXGJyZHJzXGJy WKT1JMNaZiKikpIqVJnu bGJyZHJyXGJyZHJzXGJy GRR4OFTyCpNymyYeHMeo bHBhZHQxMFxjbHBhZGZ0 N5uhvCLyVNYvAXqpkJWd NWPpE0lszGLuCUktHXNi cGFkZmwzXGNscGFkYjBc M1rzMLFnIdMkC6DxiPm6 NjAwXGNsdmVydGFsdFxj rEWdHLE5XTEpFADhACDq YJZ5XJNkGeGynxUsSNvo bGJyZHJiXGJyZHJzXGJy QHX4GGIsOyWrguUnBOog bGJyZHJsXGJyZHJzXGJy IXW4RAFzIqDkecAlUFrn bGJyZHJyXGJyZHJzXGJy TED1DZFmOsWwnuIbPXub bHBhZHQxMFxjbHBhZGZ0 G4najLLeBXZnDCjfcXGi KHWsJ0txkAPwZEaeXXAb cGFkZmwzXGNscGFkYjBc S7sxKUJcPxFyQ5SgyBc2 XsHwJKLvgmPzmE56Msfs u5EbBDYjQJR1WAchRUgt bFxwbGFpblxmMVxmczIw VLpkqsukLIObAXxrI7sf EiMfJDPbvZvkAZpxm5Ix XGYxXGNmMlxmczIwXGIg IAWdODLswH1jOfvaX9Yc kY1rWTqgFqsiG4opYVXy m9JodE3gQFuroJUlcnap MVxmczIwXGxhbmcxMDMz TJtbV7fqYeEkFJPveLrt XNbom0ZsONDfAKUsManf fkDhVWa9nyNfLISkgXsw aDVlRFlmnmRfvHtny0Dt dmCiqGmjLRBtNFi5buUl ahexxMm3qMKoyXcqYZZb mLtpiI6nDrKdApVdKXdv bGFpblxmMVxmczIwXGxh czmmHJVfQDcaR7jeLlEu GWZimGfeXPzmi0CfIETm JKTjTuercvGhMCVfM36c bGVjdGVkXHBsYWluXGYx XGZzMjBcbGFuZzEwMzNc aGljaFxmMVxkYmNoXGYx QCtjJ5mzHmEuA6CiMEIg JbLiwZOiF0sgO4EjpZts YXJkXGludGJsXHNzcGFy FDC3rWGothOklOAblXBy DHYjLDuuHOG3bTAkpzky mCDxwieyIWfxwtM2YPVc YWluXGYxXGZzMjBcbGFu ZzEwMzNcaGljaFxmMVxk RsUwUEVfVYyiK4pmIhHm C4FxTEZgJzYoDsRNUFTf aXZlZFxwbGFpblxmMVxm czIwXGxhbmcxMDMzXGhp U4ooCoFrLYCelQkuMBmp v1IhMHDrBPVvMmcsepMp ATd9leZnNVKqzSpauL26 Pyyhhr33WLOyq4gqGINm X3CfiFAdLSVypMPtLHnm MDhcdHJwYWRkZmwzXHRy cGFkZHIxMDhcdHJwYWRk ZnIzXHRycGFkZHQwXHRy zTQfDJX7P8e6gfNtGZNc TSc0yzWvDEMvYxPlkAAj LQS5EYl4RfmjghR4zPAg C1t3TfslkiViGVuxsTZt vx17HJLfmtVfyPSwkGhv aMGjNOT9PSTsVOBwKAXo BRI4VXLqZfSffuZqGWni bGJyZHJiXGJyZHJzXGJy BLA5RKAwXdWrwxUcCNae bGJyZHJsXGJyZHJzXGJy YIW5BCVcOeGzikDlGGym bGJyZHJyXGJyZHJzXGJy DPB6WKRyBeZvohGnPTwx bHBhZHQxMFxjbHBhZGZ0 O8pfrSBhJUIyDPwcbKWw ENGsQ3vioRVrBBmxXYCc cGFkZmwzXGNscGFkYjBc U8hxXQJkYnZyQ4BtfZs1 MDAwXGNsdmVydGFsdFxj zWWtJVN5WQIsZSGvKELd RAG5BWXvHhGtfqHkZJnu bGJyZHJiXGJyZHJzXGJy YPJ5RMEwEjVslqKhZDnj bGJyZHJsXGJyZHJzXGJy JHX9TOUkRbJivkQrDDqb bGJyZHJyXGJyZHJzXGJy LIM1ZQYhSfWbyrHzFSwo bHBhZHQxMFxjbHBhZGZ0 V5lntJIrULFhTJxsvVGr EALiT8pvdWMpKVgbPHXg cGFkZmwzXGNscGFkYjBc N0faZVDxOmNhP6XweQb4 NjAwXGNsdmVydGFsdFxj hBKiBTG3CQJpBYNlJXOz VVN2KADsHbEjppAhJSvs bGJyZHJiXGJyZHJzXGJy QHI1CLOtGhWwcpKmLYfd bGJyZHJsXGJyZHJzXGJy COV6ORCyEnRzrlQnKSsm bGJyZHJyXGJyZHJzXGJy EZH0UMAdYwRshlTpDOgg bHBhZHQxMFxjbHBhZGZ0 T4mfaAZyGBGlAHzxaZPb VZYiX3djfBFgFKzlKDAc cGFkZmwzXGNscGFkYjBc J6jaMKShPkVmF6FucCe9 OpNnQBBptyKywD22Xhiz t0SpKMReNUC8BNzuWXpf bFxwbGFpblxmMFxmczI0 XHBsYWluXGYxXGZzMjBc bGFuZzEwMzNcaGljaFxm FJvpKyPlCNGzCWdwY6zz AkAeT7OxWMVqGpNsOK6v NI0NJuMjLrXzJdFfCEgy M4WrVIWsHkcMK6iRLWOw RWGTJ6skyZBmmmjpZVla czIwXGxhbmcxMDMzXGhp O2idVmPhMCUdsPuwXOxr b0RkSNYsYBIdMwmebtDz JTa4bpVwPNWrvAxvxUBy AFxdbdDhnJzas6UtldOp dXgwXHMwXHFsXHBsYWlu EWPcEIJbWuHaaUfruN2s YhZbBbKbDUtvFC3bFROo X6msaLQzWDVtVXMxP4xn VlDlyA2lqFeaXQekVaYt ZnMyMCAxLzcvMjAyMVxw bGFpblxmMVxmczIwXGxh fftvWFLbDSczA7rhOnLm CNJlcLqhCFvpz8AxDYVw OLHoFkfxmwTcIEo9oxAn XGNlbGxccGFyZFxpbnRi bGboq7VmcwJqsCbqOTLl XHFsXHBsYWluXGYwXGZz HmFzoGczgT1oEkFfYrEi ZXvaVU9pLAGaI2gjzELk YPHfABAkP5yrIgBtnP5s aFxmMVxjZjJcZnMyMCAx EhF4FeQtHoOvuGsqxS1x RgQxAcNxWEanKH0sROFu Z6cqzVEjCVPhTHGdA1bi FzBthW9nzKruSJdsGsCr ZnMyMFxsdHJjaFxjZWxs UZrirRLtNXNin7jxMNFz HERjxUNoYKQ3mKGabxMt fAaelGfasV9xOeLcDjTl NFxwbGFpblxmMVxmczIw VNkipsgbNCZdPVgmP6dr ZgBaIFRjwWhnEUkhi8Ur XGYxXGZzMjBccGFyfQ== Diagnosis (test code = l7lswYDrCLClpZP3SiDh 34) JLGwg5qcm1IhmLUmcBRe BYzanCJmbwMvbh33iTC4 rA07LC3jFMMlOxT2TCRv anB3Azu6IJQrALCvhKOr Y334o7qgq4usgjVsbZY5 fVxwYXJkXHBsYWluXGZz ReZgXLtzjFEav5K7l7rm ZSBzbGlkZXMgKFBNQzpT SRXoTZHzKZIjUZL7LWwf ZGVzaWduYXRlZCBhcyBs MHH2ROPdbiU4tWIhsPNr lKZ6MzLrrYEeEXTxozip mNktOXkebF72KrXcN5WD D5BWABUGJzVKDcvIWmUs DUSDO1CjF3eMHDAVK1LP IA4FFY9MM6ESOI5UKSQV P29kOCqSKPHrA85AVLCO FOpprJYvEKoxGTJ8YCcc hF1zDPHbRZDnriuxoHDi bGluMCBFREUvTEFccGFy fQ== Comment (test code = e8zzgECeXZAyoSH7TlMh 9835) FEOsv5tev0QwoUXuaXAu MUdmdQNzavNebo13yUN6 zQ14IR2uKMFlKdN3RRTl msY3Mvo4XCKhXOHkpLEv Q125q5zye8udrgJbhXD7 fVxwYXJkXHBsYWluXGZz MjAgUGVyIHRoZSBvdXRz aKJiEBIoqDfegE2ejODz ZXBvcnQsIHRoZSBjeXN0 LHwuBthuT30lBCbmraPz HFAzxANuORVlskIlK1Md MAQfKKBzVVkzKK0jGMFz PRL7zVKkK8VnGOG5gvDg D8LqsL31u6k6EL0rnnTb xQ2wo9XnbCarumEiw8mk jiLntPnjDXM5p4Tom2Rl GqAjQVDuurA0eZP2HAua emVkLiBBIGZldyBwYXBp oHmjIBOxQDVlVA0gA3Qt nMKybNtfFEK5YBUxRFQ8 cmVzLCBidXQgdGhlcmUg rURghh8zVs3tlZFmPzXj xK0jjH8vcUmyJALprQPg DOFpfOpio8QbGqEwcQTh fQ== Disclaimer (test code = l2hkzLWpNDHsxLQxNbMa 9844) VMEbNIWon1pvTDFtoXIz ZzEwMzNcZnRuYmpcdWMx DZUuAcRde9yla009oENd u2ohVPOjOiC7xPPvLRGv hMCpR338BUQdEKzhr5vv z8GgRCPjiCRqv5P9GPKI ruunmLn9fHpsC84ns2J4 MlrfZ0iwYRFqOOSwB0Vr LO2kMCDgQid9XNX2UIG1 JYCkFMMdE3TxRG4hCEHu tMYmDXi7t7awfYejTVZt LCK7s8vhNYzzasWrZP6f vv1tdDj0m9pannNyJJXr WETyeEUQOYFeT3OwdXpy Ss4qgSu1pCwhGqdmSUO9 Qui7VY8nyj03tqc4sThi PZDrwgiuXxJ7KMzwQJIj ggquUGz8AOavZSZvzEJ6 NYCsuWFjA8RgMBPzBX9n trw3VLK8XYglYRNqHwM2 NDBcaGVhZGVyeTcyMFxm l203PLJ0FiCpEK0rS0Mb s1L9mX8ubTMhZYFasZXo CoQwKTUdef3cjSWlINqc e9DeWKD3ixU0tZJprREn FHUfUN63Ljubu5XaYvzv RFK9DQXohtWld5Voo8uf MgFtaqMtU0jrY3FgKVUk BRYsROJaZbFnbjSzs3Yk l3PpjSQrmPl4n4uxJUNt CHWzfOhaj2ydZXZ1WGQx D1J0mAJzg8ttCPyrSECb tHJ6yvX0QAQlsNOgH8Sp mA5lCWAjDB4xfxv5y8ae AEV6QGslCVOzIxC9xsB6 NDBcaGVhZGVyeTcyMFxm c855MUV3OcVxIITqj3Zy C2NehNwbL70qtNyrE68n YJHpqUgfkF9nkCdcfE7w ZjBcZnMyNFxxbFxwbGFp tnceRZqeunF8GDtcaovb AMRsLXwkN4ugQlIwQZWw sZcuAJykl7OjLQKjMHMh DvygobZ9CBQOf64jASIk p7WwIBEdiM0iuIBiRMei lnWcyRA0AGkjvqGlHbMn akJuTDKswL6nBYMgYH4l LEYyedEaxf3xqqJoUKIb VKRmI3KinwojrQwsbvEn WOOwkj8phxJqLFT6HIQJ AF3QQXAjXMTmm13iLBMf jUoezC5tnPGblnLtMWLl h3ImxB7zpWZWYZEyK8rd BH4hPYixi6WbfNDqwUFu aQV4KWDqc6ItWcJykpUm oHOfuTXkK9GwpZliA7hp TSKuEBTapuZbtJBvd9Ii YJFzoWM2sYVdAG6LQgQL q66gSHUvZDLMlmGdDVAt dXoxbQY7tgV3kG5iIqBI ZiBhcHBsaWNhYmxlLCBj y662py8lzrG5KPAbWPNr wxfgr8FkVNYtHSVecJ47 BFSjBAPvfw7kercjmXFf hcYpD3Cbpkd1tX7jBEAo YWluXGYxXGZzMjJcbGFu ZzEwMzNcaGljaFxmMVxk RcPpWNUwFZubV0fvTxSa ZnMyMlxwYXJ9 MD [id number] 15:43:00 Test Item Value Reference Range Interpretation Comments SURG (test code = SURG) RUN DATE: 11/18/20 [facility] PAGE 1 RUN TIME: 1543 Specimen Inquiry RUN USER: INTERFACE PATIENT: DANIEL GREENFIELD LOC: DONTAEU U #: [id number] AGE/SX: 20/F ROOM: RE11/12/20HUGO DR: Donna Walker : 98 BED: DIS: STATUS: DEP SDC TLOC: SPEC #: PMC:S-22-21 RECD: 11/12/20 STATUS: ANA JOEY #: [id number] HAWA: 11/12/[address]: Donna Walker MD ENTERED: 11/12/20 SP TYPE: SURG OTHR DR: DOES_NOT KNOW ORDERED: SURG PATH LVL 4 COPIES TO: DOES_NOT KNOW Donna Walker MD [address] [place] [address] HISTOLOGY: TISSUE ID BLK PCS ELI LEV PROCEDURE DISPOSITION ____ ___ ___ ___ OVARY, NOS A 1 1 PROCEDURES: SURG PATH LVL 4 (11/13/20) TISSUES: A. SKIN, NOS - LEFT PARATUBAL CYST (DERMOID) CLINICAL HISTORY IRREGULAR MENSES - N92.6; LLQ PAIN OVARIAN CYST - R10.32 CPT CODES CPT CODE(S): 86440 , , , , , , FINAL DIAGNOSIS Paratubal, left, cystectomy: SEROUS BORDERLINE TUMOR GROSS DESCRIPTION Left paratubal cyst (dermoid). Received in formalin is an intact cystic structure, 3.7 x 3.3 x 2.2 cm, 9.9 grams. The specimen is sectioned and contains copious amount of viscous yellow-ramos material. There are ramos excrescences attached to the inner lining of the cyst. The specimen is entirely submitted as A1 - A8. ba/nr Grossing performed at [facility] Pathology, [address] [place] [address], [address], [place] [address]. Twisting Press Operator: Nam Rachel M.D. CONTINUED ON NEXT PAGE RUN DATE: 11/18/20 [facility] PAGE 2 RUN TIME: 1542 Specimen Inquiry RUN USER: INTERFACE SPEC #: [facility]:S-22 PATIENT: DANIEL GREENFIELD #[id number] (Continued) MICROSCOPIC DESCRIPTION Left paratubal cyst. sections demonstrate a paratubal structure with a cystlike wall. The cyst components demonstrate a papillary appearance with focally complex epithelium. The epithelium demonstrates areas of pleomorphism with occasional calcifications. No evidence of significant stromal invasion is identified. No marked pleomorphism or significant solid areas are seen. 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 Signed SIGNATURE ON FILE Dario Rosa 11/18/20 1543 END OF REPORT [id number] 15:43:00 Test Item Value Reference Range Interpretation Comments SURG (test code = SURG) RUN DATE: 11/19/20 [facility] PAGE 1 RUN TIME: 942 Specimen Inquiry RUN USER: INTERFACE PATIENT: DANIEL GREENFIELD LOC: ADDIS U #: [id number] AGE/SX: 20/F ROOM: RE11/12/20REG DR: Donna Walker : 98 BED: DIS: STATUS: DEP [facility] TLOC: SPEC #: PMC:S-22-21 RECD: 11/12/20 STATUS: ANA COOK #: [id number] HAWA: 11/12/[address]: Donna Walker MD ENTERED: 11/12/20 SP TYPE: SURG OTHR DR: DOES_NOT KNOW ORDERED: SURG PATH LVL 4 COPIES TO: DOES_NOT KNOW Donna Walker MD [address] [place] [address] HISTOLOGY: TISSUE ID BLK PCS ELI LEV PROCEDURE DISPOSITION ____ ___ ___ ___ OVARY, NOS A 1 1 PROCEDURES: SURG PATH LVL 4 (11/13/20) TISSUES: A. SKIN, NOS - LEFT PARATUBAL CYST (DERMOID) CLINICAL HISTORY IRREGULAR MENSES - N92.6; LLQ PAIN OVARIAN CYST - R10.32 CPT CODES CPT CODE(S): 29135 , , , , , , FINAL DIAGNOSIS Paratubal, left, cystectomy: SEROUS BORDERLINE TUMOR GROSS DESCRIPTION Left paratubal cyst (dermoid). Received in formalin is an intact cystic structure, 3.7 x 3.3 x 2.2 cm, 9.9 grams. The specimen is sectioned and contains copious amount of viscous yellow-ramos material. There are ramos excrescences attached to the inner lining of the cyst. The specimen is entirely submitted as A1 - A8. ba/nr Grossing performed at [facility], [address] [facility] [address], [address], [place] [address]. Twisting Press Operator: Nam Rachel M.D. CONTINUED ON NEXT PAGE RUN DATE: 11/19/20 ALTON Montalvo Wilkinson - LAB PAGE 2 RUN TIME: 942 Specimen Inquiry RUN USER: INTERFACE SPEC #: [facility]:S PATIENT: DANIEL GREENFIELD #[id number] (Continued) MICROSCOPIC DESCRIPTION Left paratubal cyst. sections demonstrate a paratubal structure with a cystlike wall. The cyst components demonstrate a papillary appearance with focally complex epithelium. The epithelium demonstrates areas of pleomorphism with occasional calcifications. No evidence of significant stromal invasion is identified. No marked pleomorphism or significant solid areas are seen. 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 Signed SIGNATURE ON Dario Gatica 11/18/20 1543 END OF REPORT COVID 19 INHOUSE [id number] 11:32:00 Test Item Value Reference Range Interpretation Comments COVID 19 INHOUSE AG NEGATIVE Negative Per manu facturer, (test code = negative result s should [id number]) be treated aspr esumptive and, if inconsi stent with clinical signs andsymptoms or necessary for patient man agement, should betested with an alternative mol ecular assay. Negative resultsdo not preclude SA RS-CoV-2 infection and s hould not be usedas the s ole basis for patient man agement decisions. Neg ative results should be considered in t he context of apatient's r ecent exposures, hist ory, presence of cli nicalsigns and symptoms co nsistent with COVID-19. URINALYSIS [id number] 11:07:00 Test Item Value Reference Range Interpretation Comments UA GLUCOSE DIPSTICK (test NEGATIVE mg/dL NEG code = DGLUU) UA BILIRUBIN DIPSTICK (test NEGATIVE mg/dL NEG code = BILU) UA KETONE DIPSTICK (test NEGATIVE mg/dL NEG code = KETU) UA SPECIFIC GRAVITY (test 1.020 SG 1.005-1.030 code = SGU) UA BLOOD DIPSTICK (test NEGATIVE mg/DL NEG code = VINCENZO) UA PH DIPSTICK (test code = 7.5 pH UNITS 5.0-7.0 A BARBRA) UA PROTEIN DIPSTICK (test NEGATIVE mg/dL NEG code = PROU) UA UROBILINIOGEN DIPSTICK 0.2 mg/dL <2.0 (test code = URO) UA NITRITE DIPSTICK (test NEGATIVE SCREEN NEG code = NATHALIE) UA LEUKOCYTE ESTERASE NEGATIVE Leuk/mcL NEGATIVE DIPSTICK (test code = LEUU) Urine Specimen Type: Clean CatchHCG SERUM [id number] 11:03:00 Test Item Value Reference Range Interpretation Comments HCG SERUM QUAL (test SERUM NEGATIVE SCREEN NEGATIVE code = HCGQL) CBC W/AUTO [id number] 10:54:00 Test Item Value Reference Range Interpretation Comments WHITE BLOOD CELL (test code = 10.5 K/mm3 3.5-11.0 N WBC) RED BLOOD CELL (test code = 4.26 M/mm3 4.70-6.10 L RBC) HEMOGLOBIN (test code = HGB) 12.8 G/DL 12.3-15.9 N HEMATOCRIT (test code = HCT) 40.4 % 35.8-46.7 N MEAN CELL VOLUME (test code = 94.8 Fl 86.3-98.9 N MCV) MEAN CELL HGB (test code = MCH) 30.0 pg 28.9-34.4 N MEAN CELL HGB CONCETRATION 31.7 G/DL 32.1-34.5 L (test code = MCHC) RED CELL DISTRIBUTION WIDTH 13.6 SD 11.5-14.5 N (test code = RDW) PLATELET COUNT (test code = 277 K/mm3 150-450 N PLT) MEAN PLATELET VOLUME (test code 10.40 fL 7.0-9.6 H = MPV) NEUTROPHIL % (test code = NT%) 66.8 % 40-76 N IMMATURE GRANULOCYTE % (test 0.5 % 0.0-5.0 N code = IG%) LYMPHOCYTE % (test code = LY%) 19.3 % 20.5-51.1 L MONOCYTE % (test code = MO%) 11.0 % 1.7-9.3 H EOSINOPHIL % (test code = EO%) 1.8 % 0.0-6.0 N BASOPHIL % (test code = BA%) 0.6 % 0.0-2.0 N NUCLEATED RBC % (test code = 0.0 /100WBC% 0.0-1.0 N NRBC%) NEUTROPHIL # (test code = NT#) 7.0 K/mm3 1.8-7.6 N IMMATURE GRANULOCYTE # (test 0.05 x10 3/uL 0.00-0.03 H code = IG#) LYMPHOCYTE # (test code = LY#) 2.0 K/mm3 0.6-3.0 N MONOCYTE # (test code = MO#) 1.2 K/mm3 0.2-1.5 N EOSINOPHIL # (test code = EO#) 0.2 K/mm3 0.0-0.4 N BASOPHIL # (test code = BA#) 0.1 K/mm3 0.0-0.2 N NUCLEATED RBC # (test code = 0.0 K/mm3 0.00-0.01 N NRBC#) MANUAL DIFF REQUIRED (test code NO DIFF/SCN CRITERIA = MDIFF)
[2021-01-10 12:16] LABS: Urine Blood TRACE (NEG); Urine Glucose NEGATIVE (NEG); Urine Protein NEGATIVE (NEG); Urine pH 8.5 (5.0-7.0)
[2021-01-10 12:18] LABS: Urine Bacteria <20 /HPF (<20); Urine RBC <5 /HPF (NONE SEEN)
[2021-01-10] MEDS ORDERED: MORPHINE 4 MG/ML SYR ONE ×2 (12:25→13:32)
[2021-01-10] MEDS ORDERED: NA CHLORIDE 0.9% 1,000 ML ONE ×2 (12:26→14:11)
[2021-01-10] MEDS ORDERED: ONDANSETRON 4 MG/2 ML VIAL ONE (12:26)
[2021-01-10 12:36] LABS: Absolute Lymphocytes (CBC) 1.1 K/uL (0.7-4.9); Basophils % 0.1 % (0-1.3); Lymphocytes % 5.8 % (15.3-44.8); MPV 8.3 fL (7.6-11.3); RBC Red Blood Cell Count 4.25 M/uL (3.86-4.86)
[2021-01-10 12:57] LABS: ALT/SGPT 23 U/L (12-78); AST/SGOT 16 U/L (15-37); Albumin 3.8 g/dL (3.4-5.0); Alkaline Phosphatase 89 U/L (45-117); BUN Blood Urea Nitrogen 7 mg/dL (7-18); Bicarbonate 29 mmol/L (21-32); Bilirubin Direct < 0.1 mg/dL (0-0.2); Bilirubin Total 0.4 mg/dL (0.2-1.0); Glucose Level 100 mg/dL (74-106); Lipase 42 U/L (73-393); Potassium 3.7 mmol/L (3.5-5.1); Protein, Total 7.2 g/dL (6.4-8.2); Sodium Level 145 mmol/L (136-145)
--- NOTE | 2021-01-10 13:04 | RAD REPORT ---
EXAM DESCRIPTION: CTAbdomen Pelvis W Contrast - 01/10/2021 12:52 pm CLINICAL HISTORY: Abdominal pain. ABD PAIN COMPARISON: Abdomen Pelvis W Contrast dated 03/08/2019; CT ABD PELVIS W CONTRAST dated 05/16/2013 TECHNIQUE: Biphasic CT imaging of the abdomen and pelvis was performed with 100 ml non-ionic IV cont rast. All CT scans are performed using dose optimization technique as appropriate and may include automated exposure control or mA/KV adjustment according to patient size. FINDINGS: The lung bases are clear.Postsurgical changes about the stomach. The liver, spleen, pancreas, adrenal glands and kidneys are within normal limits. No bowel obstruction, free air, free fluid or abscess. Appendectomy. IUD is present in the uterus. N o evidence of significant lymphadenopathy. No suspicious bony findings. IMPRESSION: No acute intra-abdominal or pelvic finding.
[2021-01-10 13:16] LABS: Blood Morphology Comment NOT SEEN (NOT SEEN); Platelet Estimate ADEQ; White Blood Cell Scan OK (OK)
[2021-01-10] MEDS ORDERED: CEFTRIAXONE/SWI 1gm 1 GM/10 ML SYR ONE (14:11)
--- NOTE | 2021-01-10 14:22 | EDPHYS ---
Physician Documentation [facility] Name: Chloe Mckeon Age: 20 yrs Sex: Female : 2000 Arrival Date: 01/10/2021 Time: 11:14 Bed 18 Private MD: ED Physician Luis Nance HPI: 01/10 11:55 This 20 yrs old Female presents to ER via Ambulatory with complaints of Pelvic pm1 Pain. 13:04 The patient presents with abdominal pain suprapubic area. Onset: The symptoms/episode pm1 began/occurred last night. The symptoms do not radiate. Associated signs and symptoms: Pertinent positives: nausea and vomiting, Pertinent negatives: chest pain, diarrhea, fever, shortness of breath. The symptoms are described as sharp. Modifying factors: The symptoms are alleviated by nothing, the symptoms are aggravated by nothing. Severity of pain: in the emergency department the pain is actually worse. The patient has experienced a previous episode, and the symptoms today are exactly the same, to prior ovarian cyst rupture. The patient has not recently seen a physician. 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 - Social history:: Smoking status: Patient uses street drugs, marijuana. ROS: 13:04 Constitutional: Negative for fever, chills, and weight loss, Cardiovascular: Negative pm1 for chest pain, palpitations, and edema, Respiratory: Negative for shortness of breath, cough, wheezing, and pleuritic chest pain, Back: Negative for injury and pain. 13:04 MS/Extremity: Negative for injury and deformity, Skin: Negative for injury, rash, and discoloration, Neuro: Negative for headache, weakness, numbness, tingling, and seizure. 13:04 Abdomen/GI: Positive for abdominal pain, nausea and vomiting, of the suprapubic area, Negative for diarrhea, constipation. 13:04 : Positive for urinary frequency, small amounts, Negative for flank pain, burning with urination, vaginal bleeding, vaginal discharge, vaginal itching. Exam: 13:04 Constitutional: This is a well developed, well nourished patient who is awake, alert, pm1 and in no acute distress. Head/Face: Normocephalic, atraumatic. 13:04 Back: No spinal tenderness. No costovertebral tenderness. Full range of motion. Skin: Warm, dry with normal turgor. Normal color with no rashes, no lesions, and no evidence of cellulitis. MS/ Extremity: Pulses equal, no cyanosis. Neurovascular intact. Full, normal range of motion. 13:04 Cardiovascular: Rate: tachycardic, Rhythm: regular, Pulses: no pulse deficits are appreciated. 13:04 Respiratory: Exam negative for acute changes, respiratory distress, shortness of breath. 13:04 Abdomen/GI: Inspection: abdomen appears normal, Palpation: soft, in all quadrants, mild abdominal tenderness, in the suprapubic area. 13:04 Neuro: Exam negative for acute changes, Orientation: is normal, Mentation: is normal, Motor: is normal, moves all fours. Vital Signs: 11:42 BP 114 / 62; Pulse 108; Resp 16; Temp 99.8; Pulse Ox 100% on R/A; Weight 79.38 kg; iw Height 5 ft. 6 in. (167.64 cm); Pain 7/10; 13:00 BP 117 / 70; Pulse 110; Resp 18; Pulse Ox 96% on R/A; zb 15:08 BP 114 / 69; Pulse 112; Resp 16; Pulse Ox 100% on R/A; zb 16:03 BP 105 / 61; Pulse 117; Resp 16; Pulse Ox 99% on R/A; zb 11:42 Body Mass Index 28.25 (79.38 kg, 167.64 cm) iw MDM: 11:46 Patient medically screened. pm1 13:34 Data reviewed: vital signs. Data interpreted: Pulse oximetry: on room air is 100 %. pm1 Interpretation: normal. Counseling: I had a detailed discussion with the patient and/or guardian regarding: the historical points, exam findings, and any diagnostic results supporting the discharge/admit diagnosis, lab results, radiology results, the need for outpatient follow up, to return to the emergency department if symptoms worsen or persist or if there are any questions or concerns that arise at home. 01/10 11:55 Order name: Basic Metabolic Panel pm1 01/10 11:55 Order name: CBC with Diff pm1 01/10 11:55 Order name: Hepatic Function pm01/10 11:55 Order name: Lipase pm1 01/10 11:55 Order name: Urine Microscopic Only pm1 01/10 11:56 Order name: Basic Metabolic Panel; Complete Time: 13:00 EDMS 01/10 11:56 Order name: CBC with Automated Diff; Complete Time: 13:27 EDMS 01/10 11:56 Order name: Liver (Hepatic) Function; Complete Time: 13:00 EDMS 01/10 11:56 Order name: Lipase; Complete Time: 13:00 EDMS 01/10 11:56 Order name: Urine Microscopic Only; Complete Time: 12:19 EDMS 01/10 12:12 Order name: Urine Dipstick--Ancillary (enter results) 01/10 12:16 Order name: Urine Dipstick-Ancillary; Complete Time: 12:18 EDCO 01/10 12:36 Order name: Urine --Ancillary (enter results); Complete Time: 13:59 01/10 12:44 Order name: CREATININE WHOLE BLOOD; Complete Time: 13:00 EDCO 01/10 11:55 Order name: IV Saline Lock; Complete Time: 12:27 pm1 01/10 11:55 Order name: Labs collected and sent; Complete Time: 12:27 pm1 01/10 11:55 Order name: Urine Dipstick-Ancillary (obtain specimen); Complete Time: 12:03 pm1 01/10 11:55 Order name: Urine Test (obtain specimen); Complete Time: 12:03 pm1 01/10 11:55 Order name: CT Abd/Pelvis - IV Contrast Only pm1 01/10 13:04 Order name: CT; Complete Time: 13:27 EDMS 01/10 13:52 Order name: Urine Culture EDCO 01/10 13:56 Order name: CBC Smear Scan EDMS Administered Medications: 12:05 Drug: Zofran (Ondansetron) 4 mg Route: IVP; Site: right antecubital; zb 12:45 Follow up: Response: Nausea is decreased zb 12:26 Drug: morphine 4 mg Route: IVP; Site: right antecubital; zb 13:00 Follow up: Response: No adverse reaction; Pain is decreased; RASS: Alert and Calm (0) zb 12:26 Drug: NS 0.9% 1000 ml Route: IV; Rate: 1000 ml; Site: right antecubital; zb 13:46 Follow up: Response: No adverse reaction; IV Intake: 1000ml zb 13:17 Drug: morphine 4 mg Route: IVP; Site: right antecubital; jd3 16:00 Follow up: Response: No adverse reaction; RASS: Alert and Calm (0) zb 13:57 Drug: Rocephin 1 grams Route: IV; Rate: calculated rate; Site: right antecubital; zb 14:20 Follow up: Response: No adverse reaction; IV Status: Completed infusion; IV Intake: 20mlzb 13:58 Drug: NS 0.9% 1000 ml Route: IV; Rate: 1000 ml; Site: right antecubital; zb 15:09 Drug: morphine 2 mg {Note: ra.} Route: IVP; Site: right antecubital; zb 16:00 Follow up: Response: No adverse reaction; RASS: Alert and Calm (0) zb Disposition: 01/10/21 14:21 Discharged to Home. Impression: Urinary tract infection, site not specified. - Condition is Stable. - Discharge Instructions: Urinary Tract Infection, Adult. - Prescriptions for Bactrim DS 800- 160 mg Oral Tablet - take 1 tablet by ORAL route every 12 hours for 10 days; 20 tablet. Tylenol- Codeine #3 300-30 mg Oral Tablet - take 2 tablets by ORAL route every 4-6 hours As needed; 20 tablet. Zofran ODT 4 mg Oral tablet,disintegrating - place 1 tablet by TRANSLINGUAL route every 8 hours As needed; 12 tablet. - Medication Reconciliation Form, Thank You Letter, Antibiotic Education, Prescription Opioid Use form. - Follow up: Emergency Department; When: As needed; Reason: Worsening of condition. Follow up: Private Physician; When: 2 - 3 days; Reason: Recheck today's complaints, Continuance of care, Re-evaluation by your physician. - Problem is new. - Symptoms have improved. Addendum: 01/11/2021 19:48 Co-signature as Attending Physician, Luis Nance MD I agree with the assessment and c langford plan of care. Signatures: Dispatcher [employer] EDMS Luis Nance MD MD cha Williams, Irene, RN David Shukla NP REFUGE WORKER pm1 Nickolas Gooden RN RN Nohemi Mccauley RN RN zb Corrections: (The following items were deleted from the chart) 01/10 16:04 14:21 01/10/2021 14:21 Discharged to Home. Impression: Urinary tract infection, site zb not specified. Condition is Stable. Discharge Instructions: Urinary Tract Infection, Adult. Prescriptions for Bactrim DS 800-160 mg Oral Tablet - take 1 tablet by ORAL route every 12 hours for 10 days; 20 tablet. and Forms are Medication Reconciliation Form, Thank You Letter, Antibiotic Education, Prescription Opioid Use. Follow up: Emergency Department; When: As needed; Reason: Worsening of condition. Follow up: Private Physician; When: 2 - 3 days; Reason: Recheck today's complaints, Continuance of care, Re-evaluation by your physician. Problem is new. Symptoms have improved. pm1
--- NOTE | 2021-01-10 14:22 | ER ---
Nurse's Notes [facility] Name: Chloe Mckeon Age: 20 yrs Sex: Female : 2000 Arrival Date: 01/10/2021 Time: 11:14 Bed 18 Private MD: Diagnosis: Urinary tract infection, site not specified Presentation: 01/10 11:42 Chief complaint: Patient states: lower abd pain since last night, thinks maybe a cyst iw ruptured. Coronavirus screen: At this time, the client does not indicate any symptoms associated with coronavirus-19. Ebola Screen: Patient negative for fever greater than or equal to 101.5 degrees Fahrenheit, and additional compatible Ebola Virus Disease symptoms Patient denies exposure to infectious person. Patient denies travel to an Ebola-affected area in the 21 days before illness onset. No symptoms or risks identified at this time. Initial Sepsis Screen: Does the patient meet any 2 criteria? No. Patient's initial sepsis screen is negative. Does the patient have a suspected source of infection? No. Patient's initial sepsis screen is negative. Risk Assessment: Do you want to hurt yourself or someone else? Patient reports no desire to harm self or others. Onset of symptoms was January 09, 2021. 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 - Social history:: Smoking status: Patient uses street drugs, marijuana. Screenin:27 Abuse screen: Denies threats or abuse. Denies injuries from another. Nutritional zb screening: No deficits noted. Tuberculosis screening: No symptoms or risk factors identified. Fall Risk None identified. Assessment: 12:15 General: Appears in no apparent distress. uncomfortable, Behavior is calm, cooperative, zb appropriate for age, Reports feeling ill for 2-3 days, Denies fever, chills. Pain: Complains of pain in left low back and right low back and suprapubic area Pain radiates to suprapubic area, right femoral area and left femoral area Pain currently is 6 out of 10 on a pain scale. Quality of pain is described as "twisting" Pain began 2-3 days ago. Is continuous, Alleviated by nothing. Neuro: Level of Consciousness is awake, alert, obeys commands, Oriented to person, place, time, situation. Cardiovascular: Heart tones S1 S2 present Patient's skin is warm and dry. Respiratory: Airway is patent Respiratory effort is even, unlabored, Respiratory pattern is regular, symmetrical. GI: Abdomen is round non-distended, Bowel sounds present X 4 quads. : Reports cramping, urgency, Denies burning with urination, discharge, incontinence, vaginal bleeding, vaginal itching. EENT: No signs and/or symptoms were reported regarding the EENT system. Derm: Skin is intact, is healthy with good turgor, Skin is dry, Skin is normal, Skin temperature is warm. Musculoskeletal: Range of motion: intact in all extremities. 13:00 Reassessment: Patient appears in no apparent distress at this time. Patient and/or zb family updated on plan of care and expected duration. Pain level reassessed. Patient is alert, oriented x 3, equal unlabored respirations, skin warm/dry/pink. pt c/o pain. notified ECP. 14:00 Reassessment: Patient appears in no apparent distress at this time. Patient and/or zb family updated on plan of care and expected duration. Pain level reassessed. Patient is alert, oriented x 3, equal unlabored respirations, skin warm/dry/pink. pt c/o of pain notified ECP. 15:00 Reassessment: Patient appears in no apparent distress at this time. Patient and/or zb family updated on plan of care and expected duration. Pain level reassessed. Patient is alert, oriented x 3, equal unlabored respirations, skin warm/dry/pink. d/c instruction IV fluid remain going. notified ECP. will complete fluids before d/c. 16:00 Reassessment: Patient appears in no apparent distress at this time. Patient and/or zb family updated on plan of care and expected duration. Pain level reassessed. Patient is alert, oriented x 3, equal unlabored respirations, skin warm/dry/pink. d/c instructions given. patient ambulated out. gait steady and even. Vital Signs: 11:42 BP 114 / 62; Pulse 108; Resp 16; Temp 99.8; Pulse Ox 100% on R/A; Weight 79.38 kg; iw Height 5 ft. 6 in. (167.64 cm); Pain 7/10; 13:00 BP 117 / 70; Pulse 110; Resp 18; Pulse Ox 96% on R/A; zb 15:08 BP 114 / 69; Pulse 112; Resp 16; Pulse Ox 100% on R/A; zb 16:03 BP 105 / 61; Pulse 117; Resp 16; Pulse Ox 99% on R/A; zb 11:42 Body Mass Index 28.25 (79.38 kg, 167.64 cm) iw ED Course: 11:14 Patient arrived in ED. am2 11:43 Triage completed. iw 11:46 Angela Foss, FARHAT is Primary Nurse. ca1 11:46 David Garcia NP is PHCP. pm1 11:46 Luis Nance MD is Attending Physician. pm1 11:49 Arm band placed on right wrist. ca1 12:04 Nohemi Courtney RN is Primary Nurse. zb 12:27 Patient has correct armband on for positive identification. Bed in low position. Call zb light in reach. Side rails up X 1. Pulse ox on. NIBP on. Door closed. Noise minimized. Warm blanket given. 12:27 Urine Dipstick--Ancillary (enter results) Sent. zb 12:45 Inserted saline lock: 20 gauge in right antecubital area, using aseptic technique. zb Blood collected. 16:02 No provider procedures requiring assistance completed. IV discontinued, intact, zb bleeding controlled, No redness/swelling at site. Pressure dressing applied. Administered Medications: 12:05 Drug: Zofran (Ondansetron) 4 mg Route: IVP; Site: right antecubital; zb 12:45 Follow up: Response: Nausea is decreased zb 12:26 Drug: morphine 4 mg Route: IVP; Site: right antecubital; zb 13:00 Follow up: Response: No adverse reaction; Pain is decreased; RASS: Alert and Calm (0) zb 12:26 Drug: NS 0.9% 1000 ml Route: IV; Rate: 1000 ml; Site: right antecubital; zb 13:46 Follow up: Response: No adverse reaction; IV Intake: 1000ml zb 13:17 Drug: morphine 4 mg Route: IVP; Site: right antecubital; jd3 16:00 Follow up: Response: No adverse reaction; RASS: Alert and Calm (0) zb 13:57 Drug: Rocephin 1 grams Route: IV; Rate: calculated rate; Site: right antecubital; zb 14:20 Follow up: Response: No adverse reaction; IV Status: Completed infusion; IV Intake: 20mlzb 13:58 Drug: NS 0.9% 1000 ml Route: IV; Rate: 1000 ml; Site: right antecubital; zb 15:09 Drug: morphine 2 mg {Note: ra.} Route: IVP; Site: right antecubital; zb 16:00 Follow up: Response: No adverse reaction; RASS: Alert and Calm (0) zb Intake: 13:46 IV: 1000ml; Total: 1000ml. zb 14:20 IV: 20ml; Total: 1020ml. zb Outcome: 14:21 Discharge ordered by MD. pm1 16:02 Discharged to home ambulatory. zb 16:02 Condition: stable 16:02 Discharge instructions given to patient, Instructed on discharge instructions, follow up and referral plans. medication usage, Demonstrated understanding of instructions, follow-up care, medications, Prescriptions given X 2. 16:04 Patient left the ED. zb Addendum: 01/14/2021 07:14 Addendum: Culture Results: Positive urine culture. No further action required. Bacteria e b sensitive to prescribed antibiotic. Signatures: Argentina Hale RN David Shukla NP CAMP COORDINATOR pm1 Mi Sands am2 Nickolas Gooden RN RN jLisbeth Membreno Cheryl, RN RN ca1 Brown, Zipporah, RN RN zemilee Corrections: (The following items were deleted from the chart) 01/10 11:44 11:42 Pulse 108bpm; Resp 16bpm; Pulse Ox 100% RA; Temp 99.8F; 79.38 kg; Height 5 ft. 6 iw in.; BMI: 28.2; Pain 7/10; iw
[2021-01-10] MEDS ORDERED: MORPHINE 2 MG/ML SYR ONE (15:23)
[2021-01-10 17:52] VITALS: TEMP 99.8
[2021-01-10 17:55] VITALS: BP 105/61; O2SAT 99
== END 2021-01-10 16:04 | disposition home or self-care (01) ==
LOC: ER 11:10
DX: N39.0 Urinary tract infection, site not specified (principal); Z98.84 Bariatric surgery status
CPT/HCPCS: 96365; 87088; 85025; 87086; 80048; 36415; 81025; 82565; 80076; 83690; 74177; 96375; 99284; Q9967; J2270; J0696; J7030 ×2; J2405; 81003; 81015; 87077; 87186